=== PATIENT | male | born 1945 | race Caucasian/White ===

== ENCOUNTER → 2017-06-09 | Day surgery (SDC) | payer MEDICARE, OTHER ==
[~2017-06-09] MED LIST: ALBU8I INH; ALLO300T2 PO; ALPR.5 PO; AMLO5TAB96 PO; ASPI81 PO; CHOL1CAP6 PO; CO Q30CA PO; FISH500C PO; HYDR10TA23 PO; ISOS60 PO; LACTATED RINGER'S 1000 ML INJ 1,000 ML ONE; LISI-366 PO; Lomotil; METO25 PO; MILK1CAP PO; MOBI15TA PO; NITR.4 SL; PROPOFOL 200 MG/20 ML AMP IV ONE; PROT40TA PO; RED600TA PO; REST0.05 EACH EYE; ROSU10 PO; SENTTAB2 PO; SERT-129 PO; SYMB80AE INH; TAMS0.4C67 PO; TRAZ50TA4 PO; VITA100020 IM; VITA500T10 PO
--- NOTE | 2017-06-09 10:27 | GIPROC ---
[facility] [address] [facility], [address] EGD PROCEDURE REPORT EXAM DATE: 06/09/2017 PATIENT NAME: Marcos Isaac MR #: [id number] BIRTHDATE: 1945 ATTENDING: Chema Yu MD ORDER #: [id number] COPPERSMITH HELPER: Kinjal Reyes STATUS: outpatient INDICATIONS: The patient is a 72 yr old male here for an EGD due to history of Douglas's esophagus and dysphagia PROCEDURE PERFORMED: EGD w/ biopsy EGD w/ dilation of esophagus via guidewire MEDICATIONS: None and Per Anesthesia. TOPICAL ANESTHETIC: CONSENT: The patient understands the risks and benefits of the procedure and understands that these risks include, but are not limited to: sedation, allergic reaction, infection, perforation and/or bleeding. Alternative means of evaluation and treatment include, among others: physical exam, x-rays, and/or surgical intervention. The patient elects to proceed with this endoscopic procedure. medical equipment was checked for proper function. Hand hygiene and appropriate measures for infection prevention was taken. After the risks, benefits and alternatives of the procedure were thoroughly explained, Informed consent was verified, confirmed and timeout was successfully executed by the treatment team. The patient was anesthetized with topical anesthesia and the EC-[id number] ([id number]) endoscope was introduced through the mouth and advanced to the second portion of the duodenum. Retroflexed views revealed a hiatal hernia The gastroscope was then slowly withdrawn and removed. ESOPHAGUS: There was short segment Douglas's esophagus found in the distal esophagus. The length of circumferential Douglas's was 1cm ([place] C1) and the length of Maximal extent of Douglas's was 1cm ([place] M1). There was no nodular mucosa noted in the Douglas's segment. A biopsy was performed using cold forceps. Sample sent for histology. There was a short fibrotic stricture in the distal esophagus. The stricture was traversable. The stricture was dilated using a 17mm (51Fr) savary dilator over guidewire. Fresh blood about 2 to 3 cc in the fundus, no clear area of bleeding identified. STOMACH: There was erythematous severe gastritis in the gastric antrum. DUODENUM: The duodenal mucosa appeared normal. ADVERSE EVENTS: There were no complications. IMPRESSIONS: 1. There was short segment Douglas's esophagus found in the distal esophagus; biopsy was performed 2. There was a short stricture in the distal esophagus; The stricture was dilated using a 17mm (51Fr) savary dilator over guidewire 3. Fresh blood about 2 to 3 cc in the fundus, no clear area of bleeding identified 4. There was erythematous gastritis in the gastric antrum 5. Normal duodenal mucosa 6. Retroflexed views revealed a hiatal hernia RECOMMENDATIONS: 1. Await biopsy results. Biopsy results will not be ready for 7-10 days. If you don't hear from us in two weeks, call our office for biopsy results. 2. Anti-reflux regimen 3. Continue PPI 4. Avoid NSAIDS 5. Cbc PATIENT CONDITION: stable DISPOSITION: Home REPEAT EXAM: Return 1 year EGD pending biopsy results Chema Yu MD eSigned: Chema Yu MD 06/09/2017 10:27 AM cc: Jori Portillo [facility] Jeannie Bocanegra M.D. PATIENT NAME: Marcos sIaac MR#: [id number]
== END | disposition home or self-care (01) ==
LOC: ESDC 08:21
PROVIDERS: ATTEND Internal Medicine Gastroenterology
DX: K22.70 Barrett's esophagus without dysplasia (principal); R13.10 Dysphagia, unspecified; K29.70 Gastritis, unspecified, without bleeding; K22.2 Esophageal obstruction; K44.9 Diaphragmatic hernia without obstruction or gangrene
CPT/HCPCS: 00740; 43239; 43248; 88305; J7120

== ENCOUNTER 2017-07-08 15:25 | Emergency (ER) | payer MEDICARE, OTHER ==
[~2017-07-08] VITALS: Ht 172.7 cm; Wt 82.0 kg
[~2017-07-08 15:25] MED LIST changes: -LACTATED RINGER'S 1000 ML INJ 1,000 ML ONE; -PROPOFOL 200 MG/20 ML AMP IV ONE
[2017-07-08 15:37] VITALS: BP 193/94; PULSE 65; RESP 18; TEMP 98.2; O2SAT 99
[2017-07-08 16:24] LABS: BLOOD, URINE NEG (NEG); COMMENT (UR) CULT NOT INDICATED; CULTURE IF INDICATED CULT NOT INDICATED; GLUCOSE,URINE NEG (NEG); KETONE, URINE NEG (NEG); MUCUS URINE FEW /lpf (OCC); NITRITE,URINE NEG (NEG); PH, URINE 5.5 (5.0-8.5); SQUAMOUS EPITHELIAL CELL URINE <1 /hpf (0-5); URINE COLOR YELLOW (YELLW/STRAW)
[2017-07-08 16:29] LABS: AUTOMATED NEUTROPHIL # 3.8 TH/MM3 (1.8-7.7); BASOPHIL % 0.7 % (0.0-2.0); EOSINOPHIL # 0.1 TH/MM3 (0-0.4); EOSINOPHIL % 1.1 % (0.0-4.0); HEMATOCRIT 40.7 % (39.0-51.0); HEMO FLAGS DIFF FINAL; LYMPHOCYTE # 1.9 TH/MM3 (1.0-4.8); MEAN CELL VOLUME 96.2 FL (80.0-100.0); MEAN CORPUSCULAR HGB CONC 33.3 % (32.0-36.0); NEUT % 61.2 % (16.0-70.0); PLATELET COUNT 194 TH/MM3 (150-450); RED BLOOD COUNT 4.24 MIL/MM3 (4.50-5.90); RED CELL DISTRIBUTION WIDTH 13.7 % (11.6-17.2); WHITE BLOOD COUNT 6.2 TH/MM3 (4.0-11.0)
[2017-07-08 16:43] LABS: ALT (GPT) 81 U/L (12-78); ANION GAP 9 MEQ/L (5-15); AST (GOT) 44 U/L (15-37); BICARBONATE 26.5 MEQ/L (21.0-32.0); BLOOD UREA NITROGEN 17 MG/DL (7-18); CHLORIDE 107 MEQ/L (98-107); GLOMERULAR FILTRATION RATE 76 ML/MIN (>89); POTASSIUM 3.9 MEQ/L (3.5-5.1); SODIUM (NA) 142 MEQ/L (136-145)
[2017-07-08 16:45] LABS: ALKALINE PHOSPHATASE 81 U/L (45-117); TOTAL BILIRUBIN ADULT 0.5 MG/DL (0.2-1.0)
--- NOTE | 2017-07-08 17:51 | PD ---
HPI Chief Complaint: Syncope/Near-Syncope Time Seen by Provider: 17:47 Travel History International Travel<30 days: No Contact w/Intl Traveler<30days: No Traveled to known affect area: No History of Present Illness HPI Patient comes in [place] the [place] for evaluation of a near syncopal event that occurred while at the [place] office at the [place] today. Patient reports that the dose was poker on his teeth make him feel anxious causing him to feel dizzy and nauseous. Patient states this lasted for approximately 10-15 minutes with a dentist up messing around with his teeth. Patient denies any chest pain with this, shortness of breath, headache, neck pain, numbness or tingling anywhere, back pain, bowel pain, or fevers. Patient states that when he was at the [place] they checked his blood pressure during this episode and was found to be a little bit high. Patient states he did not take all of his blood pressure medication this morning. Patient states he feels fine and is wanting to go. PFSH Past Medical History Blood Disorders: No Anxiety: Yes Depression: Yes Heart Rhythm Problems: Yes (NEW IRREGULAR HEART RHYTHEM ) Cancer: Yes (PROSTATE with radiation) Cardiac Catheterization: Yes (08/2012) Cardiovascular Problems: Yes (HTN) High Cholesterol: Yes Chemotherapy: No Chest Pain: Yes Congestive Heart Failure: No Cerebrovascular Accident: Yes Coronary Artery Disease: Yes Diabetes: No Patient Takes Glucophage: No Diminished Hearing: No Diverticulitis: Yes Endocrine: Yes Gastrointestinal Disorders: Yes (DIVERTICULITIS/GERD: Barretts esophagus) Gout: Yes Genitourinary: Yes (re-occuring prostate cancer; hx kidney stone) Hypertension: Yes Immune Disorder: No Implanted Vascular Access Dvce: Yes Medical other: Yes (colon polyps: chronic low back pain;acute pancreatitis) Musculoskeletal: Yes (DJD spine:osteoarthritis) Neurologic: Yes (SAH 01/1988 TREATED MEDICALLY) Psychiatric: Yes (anxiety;obsessive-compulsive disorder) Reproductive: No Respiratory: Yes (sleep apnea; empysema;copd) Immunizations Current: No Myocardial Infarction: No Pancreatitis: Yes Radiation Therapy: Yes Thyroid Disease: No PNEUMOCCOCAL Vaccine (Year): 1 Past Surgical History Abdominal Surgery: Yes (sigmoid colectomy) Body Medical Devices: STENT CARDIAC Cardiac Surgery: Yes (stent placement in 2007) Coronary Artery Bypass Graft: No Coronary Stent: Yes (08/20/08) Genitourinary Surgery: Yes (POLYP REMOVED WITH COLONOSCOPY) Tonsillectomy: Yes ( A CHILD) Other Surgery: Yes Social History Alcohol Use: Yes (socially) Tobacco Use: No (quit 1988) Substance Use: Yes (opioid dependence) Allergies-Medications (Allergen,Severity, Reaction): Coded Allergies: No Known Allergies (Unverified , 04/27/16) Reported Meds & Prescriptions Reported Meds & Active Scripts Active Xanax (Alprazolam) 0.5 Mg Tab 0.5 Mg PO BID PRN Reported Nitroglycerin 0.4 Mg Subl 0.4 Mg SL DIRECTED Trazodone Hcl (Trazodone HCl) 50 Mg Tab 50 Mg PO HS Sertraline 100 mg (Sertraline HCl) 100 Mg Tab 1 Tab PO DAILY Mobic (Meloxicam) 15 Mg Tab 15 Mg PO DAILY Restasis (Cyclosporine) 0.05 % Emu 1 Drop EACH EYE BID Symbicort (Budesonide/Formoterol Fumarate) 80 Mcg/4.5 Mcg Aer 2 Puff INH BID * SHAKE WELL BEFORE USE * Ventolin Hfa (Albuterol Sulfate) 8 Gm Aero 2 Puff INH QID NEB * SHAKE WELL BEFORE USE * Flomax (Tamsulosin HCl) 0.4 Mg Cap 0.4 Mg PO DAILY [Lomotil] 1 BID Vitamin C (Ascorbic Acid) 500 Mg Tab 500 Mg PO DAILY Vitamin D-3 (Cholecalciferol) 1,000 Unit Tab 1,000 Unit PO DAILY Red Yeast Rice (Red Yeast Rice Extract) 600 Mg Tab 600 Mg PO BID Hydralazine HCl 10 Mg Tab 10 Mg PO TID Protonix (Pantoprazole Sodium) 40 Mg Tabdr 40 Mg PO DAILY Metoprolol Tartrate 25 mg (Metoprolol Tartrate) 25 Mg Tab 25 Mg PO BID Crestor (Rosuvastatin Calcium) 10 Mg Tab 1 Tab PO DAILY Fish Oil 500 Mg Cap 4 Cap PO DAILY Vitamin B-12 (Cyanocobalamin) 1,000 Mcg Inj 1,000 Mcg IM Q30D Co Q-10 (Coenzyme Q10 (Ubidecarenone)) 30 Mg Cap 1 Cap PO BID Milk Thistle (Milk Thistle (Silybum Marianum) 1,000 Mg Cap 1 Cap PO BID S[employer] (Multiple Vitamins W/ Minerals) Tab 1 Tab PO DAILY Imdur 60 Mg (Isosorbide Mononitrate) 60 Mg Tabcr 60 Mg PO DAILY Allopurinol 300 Mg Tab 300 Mg PO DAILY Aspirin 81 Mg Tab 81 Mg PO DAILY Norvasc (Amlodipine Besylate) 5 Mg Tab 10 Mg PO DAILY Lisinopril 40 mg (Lisinopril) 40 Mg Tab 20 Mg PO BID Review of Systems Except as stated in HPI: all other systems reviewed are Neg Physical Exam Narrative GENERAL: Well-developed, overly nourished, in no acute distress, and non-ill appearing. SKIN: Focused skin assessment warm and dry. HEAD: Atraumatic. Normocephalic. EYES: Pupils equal and round. EOMI. No scleral icterus. No injection or drainage. ENT: No nasal bleeding or discharge. Mucous membranes pink and moist. NECK: Trachea midline. No JVD. Supple. No nuclear rigidity. CARDIOVASCULAR: Regular rate and rhythm. No murmur appreciated. RESPIRATORY: No accessory muscle use. No respiratory distress. Clear to auscultation. Breath sounds equal bilaterally. GASTROINTESTINAL: Abdomen soft, non-tender, nondistended, and no guarding. Hepatic and splenic margins not palpable. Normal bowel sounds 4. No pulsatile mass. MUSCULOSKELETAL: No obvious deformities. No clubbing. No cyanosis. No edema. Full range of motion. Normal gait. NEUROLOGICAL: Awake and alert. No obvious cranial nerve deficits. Motor grossly within normal limits. Normal speech. PSYCHIATRIC: Appropriate mood and affect; insight and judgment normal. Data Data Last Documented VS Vital Signs Date Time Temp Pulse Resp B/P Pulse Ox O2 Delivery O2 Flow Rate FiO2 07/08/17 15:37 98.2 65 18 193/94 99 Orders Complete Blood Count With Diff (07/08/17 16:03) Comprehensive Metabolic Panel (07/08/17 16:03) Iv Access Insert/Monitor (07/08/17 16:03) Urinalysis - C+S If Indicated (07/08/17 16:03) Electrocardiogram (07/08/17 ) Labs Laboratory Tests Test 07/08/17 16:00 White Blood Count 6.2 TH/MM3 Red Blood Count 4.24 MIL/MM3 Hemoglobin 13.6 GM/DL Hematocrit 40.7 % Mean Corpuscular Volume 96.2 FL Mean Corpuscular Hemoglobin 32.0 PG Mean Corpuscular Hemoglobin 33.3 % Concent Red Cell Distribution Width 13.7 % Platelet Count 194 TH/MM3 Mean Platelet Volume 8.0 FL Neutrophils (%) (Auto) 61.2 % Lymphocytes (%) (Auto) 30.0 % Monocytes (%) (Auto) 7.0 % Eosinophils (%) (Auto) 1.1 % Basophils (%) (Auto) 0.7 % Neutrophils # (Auto) 3.8 TH/MM3 Lymphocytes # (Auto) 1.9 TH/MM3 Monocytes # (Auto) 0.4 TH/MM3 Eosinophils # (Auto) 0.1 TH/MM3 Basophils # (Auto) 0.0 TH/MM3 CBC Comment DIFF FINAL Differential Comment Urine Color YELLOW Urine Turbidity CLEAR Urine pH 5.5 Urine Specific [place] 1.021 Urine Protein NEG mg/dL Urine Glucose (UA) NEG mg/dL Urine Ketones NEG mg/dL Urine Occult Blood NEG Urine Nitrite NEG Urine Bilirubin NEG Urine Urobilinogen LESS THAN 2.0 MG/DL Urine Leukocyte Esterase NEG Urine RBC LESS THAN 1 /hpf Urine WBC LESS THAN 1 /hpf Urine Squamous Epithelial <1 /hpf Cells Urine Mucus FEW /lpf Microscopic Urinalysis Comment CULT NOT INDICATED Sodium Level 142 MEQ/L Potassium Level 3.9 MEQ/L Chloride Level 107 MEQ/L Carbon Dioxide Level 26.5 MEQ/L Anion Gap 9 MEQ/L Blood Urea Nitrogen 17 MG/DL Creatinine 0.97 MG/DL Estimat Glomerular Filtration 76 ML/MIN Rate Random Glucose 104 MG/DL Calcium Level 8.4 MG/DL Total Bilirubin 0.5 MG/DL Aspartate Amino Transf 44 U/L (AST/SGOT) Alanine Aminotransferase 81 U/L (ALT/SGPT) Alkaline Phosphatase 81 U/L Total Protein 6.5 GM/DL Albumin 3.3 GM/DL [facility] Medical Decision Making Medical Screen Exam Complete: Yes Emergency Medical Condition: Yes Interpretation(s) EKG reviewed by Dr. Don shows sinus bradycardia care with a sinus arrhythm with a rate of 55. No STEMI. Differential Diagnosis Uncontrolled hypertension, electrolyte abnormality, UTI, syncope, near syncope, other Narrative Course Patient presented with dizziness described as near syncope. There was no true syncope. The patient denied any symptoms of chest pain, SOB/difficulty breathing , palpitations or skipped heartbeats. The patient denied and headache. The patient denied any bloody or tarry stools. The patient has no significant risk factors and no significant co-morbidities. There was no evidence to suggest neurologic or cardiac etiology or GIB. The diagnosis and findings were discussed with the patient and the patient was instructed to follow up with their primary physician. Patient in no obvious distress upon re-evaluation. All pertinent laboratory result(s) discussed with patient. Discussed patient with Dr. Don, who saw and evaluated the patient and is in agreement with plan of care and disposition. Any questions/concerns in reference to patient diagnosis/ condition discussed and clarified prior to patient's discharge. Reinforced sheer importance of close follow up with patient's primary physician or primary care clinic. Instructed patient to return to ED immediately, if symptoms return/ worsen. Pt showed understanding of above instructions. Further instructions and recommendations were detailed in discharge paperwork. Pt ambulated without difficulty out of ED at discharge. Diagnosis Primary Impression: Near syncope Patient Instructions: General Instructions, Near Syncope (ED) Additional Instructions: Follow-up with your primary care physician this week for evaluation. Return to the emergency department if symptoms get worse. Disposition: 01 DISCHARGE HOME Condition: Stable Rodrigo Canseco Jul 08, 2017 17:51
--- NOTE | 2017-07-08 19:23 | PD ---
Data Data Last Documented VS Vital Signs Date Time Temp Pulse Resp B/P Pulse Ox O2 Delivery O2 Flow Rate FiO2 07/08/17 15:37 98.2 65 18 193/94 99 Orders Complete Blood Count With Diff (07/08/17 16:03) Comprehensive Metabolic Panel (07/08/17 16:03) Iv Access Insert/Monitor (07/08/17 16:03) Urinalysis - C+S If Indicated (07/08/17 16:03) Electrocardiogram (07/08/17 ) Labs Laboratory Tests Test 07/08/17 16:00 White Blood Count 6.2 TH/MM3 Red Blood Count 4.24 MIL/MM3 Hemoglobin 13.6 GM/DL Hematocrit 40.7 % Mean Corpuscular Volume 96.2 FL Mean Corpuscular Hemoglobin 32.0 PG Mean Corpuscular Hemoglobin 33.3 % Concent Red Cell Distribution Width 13.7 % Platelet Count 194 TH/MM3 Mean Platelet Volume 8.0 FL Neutrophils (%) (Auto) 61.2 % Lymphocytes (%) (Auto) 30.0 % Monocytes (%) (Auto) 7.0 % Eosinophils (%) (Auto) 1.1 % Basophils (%) (Auto) 0.7 % Neutrophils # (Auto) 3.8 TH/MM3 Lymphocytes # (Auto) 1.9 TH/MM3 Monocytes # (Auto) 0.4 TH/MM3 Eosinophils # (Auto) 0.1 TH/MM3 Basophils # (Auto) 0.0 TH/MM3 CBC Comment DIFF FINAL Differential Comment Urine Color YELLOW Urine Turbidity CLEAR Urine pH 5.5 Urine Specific [place] 1.021 Urine Protein NEG mg/dL Urine Glucose (UA) NEG mg/dL Urine Ketones NEG mg/dL Urine Occult Blood NEG Urine Nitrite NEG Urine Bilirubin NEG Urine Urobilinogen LESS THAN 2.0 MG/DL Urine Leukocyte Esterase NEG Urine RBC LESS THAN 1 /hpf Urine WBC LESS THAN 1 /hpf Urine Squamous Epithelial <1 /hpf Cells Urine Mucus FEW /lpf Microscopic Urinalysis Comment CULT NOT INDICATED Sodium Level 142 MEQ/L Potassium Level 3.9 MEQ/L Chloride Level 107 MEQ/L Carbon Dioxide Level 26.5 MEQ/L Anion Gap 9 MEQ/L Blood Urea Nitrogen 17 MG/DL Creatinine 0.97 MG/DL Estimat Glomerular Filtration 76 ML/MIN Rate Random Glucose 104 MG/DL Calcium Level 8.4 MG/DL Total Bilirubin 0.5 MG/DL Aspartate Amino Transf 44 U/L (AST/SGOT) Alanine Aminotransferase 81 U/L (ALT/SGPT) Alkaline Phosphatase 81 U/L Total Protein 6.5 GM/DL Albumin 3.3 GM/DL MDM Supervised Visit with NISHA: Yes Narrative Course The history, exam, and medical decision-making in the associated midlevel provider note were completed with my assistance. I reviewed and agree with the findings presented. I attest that I had a [id number] encounter with the patient on the same day, and personally performed and documented my assessment and findings in the medical record. *My assessment and Findings: This is a 72-year-old male who has a history of coronary artery disease and [facility] when he felt lightheaded and dizzy. He didn't pass out and denies any chest pain or trouble breathing. Labs are obtained and EKG was obtained which was reassuring. He feels much better and wants to go home. I suspect this was a vasovagal episode. I think he's safe to follow-up with his primary care physician. Diagnosis Primary Impression: Near syncope Patient Instructions: General Instructions, Near Syncope (ED) Departure Forms: Tests/Procedures Additional Instruction: Follow-up with your primary care physician this week for evaluation. Return to the emergency department if symptoms get worse. Disposition: 01 DISCHARGE HOME Condition: Stable Irma Don MD Jul 08, 2017 19:23
--- NOTE | 2017-07-09 08:27 | EKG ---
Date Performed: 07/08/2017 Time Performed: 18:08:32 PTAGE: 72 years EKG: SINUS BRADYCARDIA WITH SINUS ARRHYTHMIA NONSPECIFIC ST & T-WAVE ABNORMALITY BORDERLINE ECG NO PREVIOUS TRACING DOCTOR: Waylon Patel Interpretating Date/Time 07/09/2017 08:25:29
== END 2017-07-08 18:41 | disposition home or self-care (01) ==
LOC: NEDAMB 15:25
DX: R55 Syncope and collapse (principal); I10 Essential (primary) hypertension; G47.30 Sleep apnea, unspecified; F42.8 Other obsessive-compulsive disorder; R00.1 Bradycardia, unspecified; I49.8 Other specified cardiac arrhythmias
CPT/HCPCS: 80053; 81001; 85025; 93005

== ENCOUNTER 2017-10-29 11:42 | Observation (INO) | payer OTHER, MEDICARE ==
[~2017-10-29] VITALS: Ht 172.7 cm; Wt 82.7 kg
[2017-10-29] VITALS (8 sets, daily range): BP systolic 123–207; BP diastolic 70–112; PULSE 69–86; RESP 18–22; TEMP 97.4–98.6; O2SAT 96–99
--- NOTE | 2017-10-29 12:30 | PD ---
HPI Chief Complaint: Respiratory Symptoms Time Seen by Provider: 12:03 Travel History International Travel<30 days: No Contact w/Intl Traveler<30days: No Traveled to known affect area: No History of Present Illness HPI 72-year-old male came to the emergency room with history of shortness of breath and some chest pain. Patient says that the symptoms have persisted since then. No aggravating or relieving factors. Pain is nonradiating and mostly localized to the left chest. No recent long distance travel or prolonged hospitalization. Patient has history of coronary artery disease and has a stent put in in 2005. He has not had any stress test since then. Patient takes one aspirin every day. Patient is not a smoker. He seemed very anxious. His friend was here with him. [facility] Past Medical History Narrative Medical List of his past medical, surgical, social and family history is reviewed from the nursing note Blood Disorders: No Anxiety: Yes Depression: Yes Heart Rhythm Problems: Yes (NEW IRREGULAR HEART RHYTHEM ) Cancer: Yes (PROSTATE with radiation) Cardiac Catheterization: Yes (08/2012) Cardiovascular Problems: Yes High Cholesterol: Yes Chemotherapy: No Chest Pain: Yes Congestive Heart Failure: No Cerebrovascular Accident: Yes Coronary Artery Disease: Yes Diabetes: No Diminished Hearing: No Diverticulitis: Yes Endocrine: Yes Gastrointestinal Disorders: Yes (DIVERTICULITIS/GERD: Barretts esophagus) Gout: Yes Genitourinary: Yes (re-occuring prostate cancer; hx kidney stone) Hypertension: Yes Immune Disorder: No Implanted Vascular Access Dvce: Yes Musculoskeletal: Yes (DJD spine:osteoarthritis) Neurologic: Yes (SAH 01/1988 TREATED MEDICALLY) Psychiatric: Yes (anxiety;obsessive-compulsive disorder) Reproductive: No Respiratory: Yes (copd) Immunizations Current: No Myocardial Infarction: No Pancreatitis: Yes Radiation Therapy: Yes Thyroid Disease: No PNEUMOCCOCAL Vaccine (Year): 1 Past Surgical History Abdominal Surgery: Yes (sigmoid colectomy) Body Medical Devices: STENT CARDIAC Cardiac Surgery: Yes (stent placement in 2007) Coronary Artery Bypass Graft: No Coronary Stent: Yes (08/20/08) Genitourinary Surgery: Yes (POLYP REMOVED WITH COLONOSCOPY) Tonsillectomy: Yes ( A CHILD) Other Surgery: Yes Social History Alcohol Use: Yes (socially) Tobacco Use: No (quit 1987) Substance Use: Yes (opioid dependence) Allergies-Medications (Allergen,Severity, Reaction): Coded Allergies: No Known Allergies (Unverified Allergy, Unknown, 10/29/17) Comments No known drug allergies. Reported Meds & Prescriptions Reported Meds & Active Scripts Active Reported Red Yeast Rice (Red Yeast Rice Extract) 600 Mg Tab 600 Mg PO BID Multi-Vitamin/Minerals (Multiple Vitamins W/ Minerals) 1 Tab Tab 1 Tab PO DAILY Milk Thistle Unknown Strength Cap 1 Cap PO DAILY Co Q-10 (Coenzyme Q10 (Ubidecarenone)) Unknown Strength Cap 1 Cap PO DAILY Ascorbic Acid 500 Mg Tab 500 Mg PO DAILY Nitrostat SL (Nitroglycerin) 0.4 Mg Subl 0.4 Mg SL DIRECTED PRN 1 tablet under the tongue as needed for chest pain. Repeat every 5 minutes for a total of 3 DOSES or call 911 if NO relief. Flonase Nasal [place] (Fluticasone Nasal [place]) 50 Mcg/Act [place] 2 [place] EACH NARE HS Fish Oil 1000 mg ([place]-3 Fatty Acids) 300 Mg-1,000 Mg Cap 4 Cap PO BID Symbicort Inh (Budesonide/Formoterol Fumarate) 160-4.5 Mcg/Act Aero 2 Puff INH BID Potassium Chloride ER (Potassium Chloride) 10 Meq Cap 10 Meq PO DAILY Protonix (Pantoprazole Sodium) 40 Mg Tab 40 Mg PO DAILY Remeron (Mirtazapine) 15 Mg Tab 7.5 Mg PO HS Metoprolol Tartrate 50 Mg Tab 25 Mg PO BID Claritin (Loratadine) 10 Mg Tablet 10 Mg PO DAILY Lisinopril 40 Mg Tab 20 Mg PO DAILY Isosorbide Mononitrate ER (Isosorbide Mononitrate) 60 Mg Tab 60 Mg PO DAILY Hydralazine HCl 10 Mg Tablet 10 Mg PO BID Guaifenesin 400 Mg Tab 400 Mg PO BID Lopid (Gemfibrozil) 600 Mg Tab 600 Mg PO BIDAC Take 30 minutes prior to breakfast and dinner Neurontin (Gabapentin) 100 Mg Cap 100 Mg PO DAILY Restasis Opth (Cyclosporine Opth) 0.05% Emul 1 Drop EACH EYE BID Cyanocobalamin Inj (Cyanocobalamin) 1,000 Mcg/Ml Inj 1,000 Mcg IM Q30D Refresh Celluvisc Unit-Dose Opth Drops (Carboxymethylcellulose Sodium Opth Drops ) 1% Drops 1 Drop EACH EYE QID PRN Calcium 600 + Vit D 400 Softgl (Calcium Carbonate/Vitamin D3) 600 Mg-400 Capsule 2 Cap PO DAILY Aspirin Adult Low Strength (Aspirin) 81 Mg Tabdr 81 Mg PO DAILY Norvasc (Amlodipine Besylate) 10 Mg Tab 10 Mg PO DAILY Xanax (Alprazolam) 0.5 Mg Tab 0.5 Mg PO Q8H PRN Zyloprim (Allopurinol) 300 Mg Tab 450 Mg PO DAILY Alfuzosin HCl ER (Alfuzosin HCl) 10 Mg Tab 10 Mg PO DAILY Fosamax (Alendronate Sodium) 70 Mg Tab 70 Mg PO Q7D Ventolin Hfa 18 GM Inh (Albuterol Sulfate) 90 Mcg/Act Aer 2 Puff INH Q6H PRN Narrative Medication List of his home medications reviewed from the nursing note. Review of Systems Except as stated in HPI: all other systems reviewed are Neg Cardiovascular: Positive: Chest Pain or Discomfort Respiratory: Positive: Shortness of Breath Physical Exam Narrative GENERAL: Awake, alert, anxious, mild distress SKIN: Focused skin assessment warm/dry. HEAD: Atraumatic. Normocephalic. EYES: Pupils equal and round. No scleral icterus. No injection or drainage. ENT: No nasal bleeding or discharge. Mucous membranes pink and moist. NECK: Trachea midline. No JVD. CARDIOVASCULAR: Regular rate and rhythm. No murmur appreciated. RESPIRATORY: No accessory muscle use. Clear to auscultation. Breath sounds equal bilaterally. GASTROINTESTINAL: Abdomen soft, non-tender, nondistended. Hepatic and splenic margins not palpable. MUSCULOSKELETAL: No obvious deformities. No clubbing. No cyanosis. No edema. NEUROLOGICAL: Awake and alert. No obvious cranial nerve deficits. Motor grossly within normal limits. Normal speech. PSYCHIATRIC: Appropriate mood and affect; insight and judgment normal. Data Data Last Documented VS Orders Orders Complete Blood Count With Diff (10/29/17 12:39) Basic Metabolic Panel (Bmp) (10/29/17 12:39) B-Type Natriuretic Peptide (10/29/17 12:39) Prothrombin Time / Inr (Pt) (10/29/17 12:39) Troponin I (10/29/17 12:39) Iv Access Insert/Monitor (10/29/17 12:39) Electrocardiogram (10/29/17 12:39) Ecg Monitoring (10/29/17 12:39) Oximetry (10/29/17 12:39) Oxygen Administration (10/29/17 12:39) Chest, Single Ap (10/29/17 12:39) Sodium Chloride 0.9% Flush (Ns Flush) (10/29/17 12:45) Protein Corrected Calcium(Pcc) (10/29/17 13:05) Calcium Gluconate Inj (Calcium Gluconate (10/29/17 15:00) Calcium Carbonate Chew (Tums Chew) (10/29/17 15:00) Potassium Chloride (Kcl) (10/29/17 15:00) Sodium Chlor 0.9% 1000 Ml Inj (Ns 1000 M (10/29/17 15:00) Arterial Blood Gas (Abg) (10/29/17 ) Admit Order (Ed Use Only) (10/29/17 15:59) Labs Laboratory Tests Test 10/29/17 13:05 10/29/17 15:24 White Blood Count 4.6 TH/MM3 Red Blood Count 4.54 MIL/MM3 Hemoglobin 15.7 GM/DL Hematocrit 43.8 % Mean Corpuscular Volume 96.5 FL Mean Corpuscular Hemoglobin 34.5 PG Mean Corpuscular Hemoglobin Concent 35.7 % Red Cell Distribution Width 14.9 % Platelet Count 205 TH/MM3 Mean Platelet Volume 7.6 FL Neutrophils (%) (Auto) 45.1 % Lymphocytes (%) (Auto) 46.6 % Monocytes (%) (Auto) 7.4 % Eosinophils (%) (Auto) 0.2 % Basophils (%) (Auto) 0.7 % Neutrophils # (Auto) 2.1 TH/MM3 Lymphocytes # (Auto) 2.1 TH/MM3 Monocytes # (Auto) 0.3 TH/MM3 Eosinophils # (Auto) 0.0 TH/MM3 Basophils # (Auto) 0.0 TH/MM3 CBC Comment DIFF FINAL Differential Comment Prothrombin Time 11.7 SEC Prothromb Time International Ratio 1.1 RATIO Blood Urea Nitrogen 23 MG/DL Creatinine 0.86 MG/DL Random Glucose 165 MG/DL Total Protein 6.8 GM/DL Calcium Level 7.0 MG/DL Sodium Level 134 MEQ/L Potassium Level 3.4 MEQ/L Chloride Level 103 MEQ/L Carbon Dioxide Level 16.4 MEQ/L Anion Gap 15 MEQ/L Estimat Glomerular Filtration Rate 87 ML/MIN Protein Corrected Calcium 7.2 MG/DL Troponin I LESS THAN 0.02 NG/ML B-Type Natriuretic Peptide 33 PG/ML Blood Gas Puncture Site RT RADIAL Blood Gas Patient Temperature 37.0 Blood Gas HCO3 20 mmol/L Blood Gas Base Excess -3.5 mmol/L Blood Gas Oxygen Saturation 96 % Arterial Blood pH 7.42 Arterial Blood Partial Pressure CO2 31 mmHg Arterial Blood Partial Pressure O2 116 mmHG Arterial Blood Oxygen Content 20.0 Vol % Arterial Blood Carboxyhemoglobin 1.5 % Arterial Blood Methemoglobin 1.8 % Blood Gas Hemoglobin 14.8 G/DL Oxygen Delivery Device NASAL CANNULA Blood Gas Liter Flow 3 L/M MDM Medical Decision Making Medical Screen Exam Complete: Yes Emergency Medical Condition: Yes Medical Record Reviewed: Yes Interpretation(s) Twelve-lead EKG was reviewed by me. Normal sinus rhythm, normal axis, nonspecific ST-T wave changes. Heart rate of 73 bpm. Differential Diagnosis ACS, non-STEMI, CHF, atypical chest pain Narrative Course 3:56 PM blood test results are back. Patient has slight metabolic acidosis but blood gas shows a normal pH. Chest x-rays negative. Patient has some risk factors along with previous history of coronary artery disease and I would like to admit him to the chest pain center to be seen by the career information specialist and have ACS ruled out. Procedures EKG Prior to Arrival: No Diagnosis Primary Impression: Chest pain Qualified Codes: R07.9 - Chest pain, unspecified Additional Impressions: Shortness of breath COPD (chronic obstructive pulmonary disease) Qualified Codes: J44.9 - Chronic obstructive pulmonary disease, unspecified Referrals: Primary Care Physician 2 days Additional Instructions: Please return to the ER if the condition worsens or any other new concerns. Otherwise follow-up with your primary care next couple days. Med/Other Pt SpecificInfo: No Change to Meds Disposition: 01 DISCHARGE HOME Condition: Stable Nico Hampton MD Oct 29, 2017 12:30
[2017-10-29] MEDS ORDERED: SODIUM CHLORIDE 0.9% FLUSH 10 ML FLUSH IVF PRN (12:45)
[2017-10-29 13:20] LABS: AUTOMATED NEUTROPHIL # 2.1 TH/MM3 (1.8-7.7); BASOPHIL % 0.7 % (0.0-2.0); EOSINOPHIL % 0.2 % (0.0-4.0); HEMATOCRIT 43.8 % (39.0-51.0); HEMO FLAGS DIFF FINAL; LYMPH % 46.6 % (9.0-44.0); LYMPHOCYTE # 2.1 TH/MM3 (1.0-4.8); MEAN CELL VOLUME 96.5 FL (80.0-100.0); MEAN CORPUSCULAR HEMOGLOBIN 34.5 PG (27.0-34.0); MEAN CORPUSCULAR HGB CONC 35.7 % (32.0-36.0); MONO % 7.4 % (0.0-8.0); NEUT % 45.1 % (16.0-70.0); PLATELET COUNT 205 TH/MM3 (150-450); RED BLOOD COUNT 4.54 MIL/MM3 (4.50-5.90); RED CELL DISTRIBUTION WIDTH 14.9 % (11.6-17.2); WHITE BLOOD COUNT 4.6 TH/MM3 (4.0-11.0)
[2017-10-29 13:42] LABS: ANION GAP 15 MEQ/L (5-15); BICARBONATE 16.4 MEQ/L (21.0-32.0); BLOOD UREA NITROGEN 23 MG/DL (7-18); CHLORIDE 103 MEQ/L (98-107); GLOMERULAR FILTRATION RATE 87 ML/MIN (>89); SODIUM (NA) 134 MEQ/L (136-145)
[2017-10-29 13:43] LABS: POTASSIUM 3.4 MEQ/L (3.5-5.1)
--- NOTE | 2017-10-29 14:18 | RADRPT ---
EXAM DATE/TIME: 10/29/2017 13:24 [facility] COMPARISON: CHEST SINGLE AP, August 18, 2014, 20:17. INDICATIONS : Short of breath, left kidney pain. MEDICAL HISTORY : Chronic obstructive pulmonary disease. Myocardial infarction. SURGICAL HISTORY : Coronary artery stent. ENCOUNTER: Initial ACUITY: 1 day PAIN SCORE: 4/10 LOCATION: Bilateral chest FINDINGS: A single view of the chest demonstrates the lungs to be symmetrically aerated without evidence of mas s, infiltrate or effusion. The cardiomediastinal contours are unremarkable. Osseous structures are intact. CONCLUSION: No acute cardiopulmonary process Everardo Hogue MD on October 29, 2017 at 14:15 Board Certified Radiologist. This report was verified electronically.
[2017-10-29 14:32] LABS: INTERNATIONAL NORMALIZED RATIO 1.1 RATIO; PROTHROMBIN TIME - PATIENT 11.7 SEC (9.8-11.6)
[2017-10-29 14:50] LABS: CALCIUM-PROTEIN CORRECTED 7.2 MG/DL (8.5-10.1)
[2017-10-29] MEDS ORDERED: POTASSIUM CHLORIDE 20 MEQ CONTROLLED RELEASE TAB PO ONE (15:00)
[2017-10-29] MEDS ORDERED: SODIUM CHLOR 0.9% 1000 ML INJ 1,000 ML IV ONE (15:00)
[2017-10-29] MEDS ORDERED: CALCIUM CARBONATE 500 MG CHEWABLE TAB CHEW ONE (15:00)
[2017-10-29] MEDS ORDERED: CALCIUM GLUCONATE INJ 1 GM in DEXTROSE 5% IN WATER 100ML INJ 100 ML IV ONE ×2 (15:00)
[2017-10-29] MEDS ORDERED: FLUT1SPR5 EACH NARE (15:02)
[2017-10-29] MEDS ORDERED: PROT40TA PO (15:02)
[2017-10-29] MEDS ORDERED: CLAR10TA7 PO (15:02)
[2017-10-29] MEDS ORDERED: COEN1CAP PO (15:02)
[2017-10-29] MEDS ORDERED: ASCO500T PO (15:02)
[2017-10-29] MEDS ORDERED: ALFU10TA3 PO (15:02)
[2017-10-29] MEDS ORDERED: ALLO300 PO (15:02)
[2017-10-29] MEDS ORDERED: NEUR100C PO (15:02)
[2017-10-29] MEDS ORDERED: CELL1DRO EACH EYE (15:02)
[2017-10-29] MEDS ORDERED: LISI40TA PO (15:02)
[2017-10-29] MEDS ORDERED: AMLO10 PO (15:02)
[2017-10-29] MEDS ORDERED: HYDR-3798 PO (15:02)
[2017-10-29] MEDS ORDERED: CALC600C3 PO (15:02)
[2017-10-29] MEDS ORDERED: CYAN1000P IM (15:02)
[2017-10-29] MEDS ORDERED: METO50TA PO (15:02)
[2017-10-29] MEDS ORDERED: REME15TA PO (15:02)
[2017-10-29] MEDS ORDERED: MULTTAB62 PO (15:02)
[2017-10-29] MEDS ORDERED: ALPR.5 PO (15:02)
[2017-10-29] MEDS ORDERED: FOSA70TA PO (15:02)
[2017-10-29] MEDS ORDERED: SYMB160A INH (15:02)
[2017-10-29] MEDS ORDERED: POTA10CA PO (15:02)
[2017-10-29] MEDS ORDERED: ISOS60TA PO (15:02)
[2017-10-29] MEDS ORDERED: NITR0.4S SL (15:02)
[2017-10-29] MEDS ORDERED: GEMF600 PO (15:02)
[2017-10-29] MEDS ORDERED: VENTAER INH (15:02)
[2017-10-29] MEDS ORDERED: FISH100020 PO (15:02)
[2017-10-29] MEDS ORDERED: ASPI81TA16 PO (15:02)
[2017-10-29] MEDS ORDERED: GUAI400T32 PO (15:02)
[2017-10-29] MEDS ORDERED: MILK140C PO (15:02)
[2017-10-29] MEDS ORDERED: REST0.05 EACH EYE (15:02)
[2017-10-29] MEDS ORDERED: RED600TA PO (15:04)
[2017-10-29 15:37] LABS: BLOOD GAS BASE EXCESS -3.5 mmol/L (-2-2); BLOOD GAS CARBOXYHEMOGLOBIN 1.5 % (0-4); BLOOD GAS HCO3 20 mmol/L (22-26); BLOOD GAS METHEMOGLOBIN 1.8 % (0-2); BLOOD GAS O2 HGB SATURATION 96 % (90-100); BLOOD GAS PCO2 31 mmHg (38-42); BLOOD GAS PO2 116 mmHG (61-120); BLOOD GAS TOTAL HGB 14.8 G/DL (12.0-16.0); CRITICAL VALUE NO; DRAW SITE RT RADIAL; LITER FLOW 3 L/M; NUMBER OF ARTERIAL PUNCTURES 1; OXYGEN DEVICE NASAL CANNULA; STAT YES; ULNAR PULSE PRESENT
[2017-10-29] MEDS ORDERED: ALPRAZolam 0.25 MG TAB PO PRN (17:15)
[2017-10-29] MEDS ORDERED: ONDANSETRON HCL 4 MG/2 ML VIAL IV PUSH PRN (17:15)
[2017-10-29] MEDS ORDERED: ACETAMINOPHEN 500 MG CPLT PO PRN (17:15)
[2017-10-29] MEDS ORDERED: ACETAMINOPHEN/HYDROcodone 325 MG/7.5 MG TAB PO PRN (17:15)
--- NOTE | 2017-10-29 17:32 | HHI.HP ---
HPI Primary Care Physician [facility] Chief Complaint Chest pain History of Present Illness This is a 72-year-old male with history of cardiac stent in 2007 that presents to ED with primary complaint of shortness of breath. He states that he woke up about 4:00 this morning short of breath. Within 10-15 seconds he took pulses inhalers which resolved the shortness of breath and tightness that he is having in his chest within 15-20 seconds. This recurred several more times morning also relieved with his inhalers. He also had 1-2 pinching sensations in the left chest this morning. He then states that these symptoms have been occurring for over a year at least twice a week. The difference today is that it was more recurrent. Denies recent illnesses. Denies fevers or chills. Voices compliance with his medications. No longer following a asset coordinator. He goes to the [place] for his medical care. Review of Systems General: Patient denies fevers, chills recent, and recent travel HEENT: Patient denies headache, sore throat, difficulty swallowing. Cardiovascular: Has the chest discomfort as mentioned above. Denies sensation of heart beating rapidly or irregularly. No syncope. Denies diaphoresis. Respiratory: He was short of breath. Denies inspirational chest discomfort. Denies coughing wheezing or hemoptysis. GI: Patient denies nausea, vomiting, diarrhea, abdominal pain, bloody stools. Musculoskeletal: Patient denies joint pain or edema. Denies calf pain or edema. Neurovascular: Patient denies numbness, tingling, weakness in extremities. Denies headache. Endocrine: Denies polyuria and polydipsia. Hematologic: Denies easy bruising. Skin: Denies rash or itching. Past Family Social History Allergies: Coded Allergies: No Known Allergies (Unverified Allergy, Unknown, 10/29/17) Past Medical History CAD with stent. COPD. Hyperlipidemia, hypertension, COPD, past history tobacco abuse. Denies diabetes. Past Surgical History Heart catheterizations with stenting as well as heart catheterizations without intervention. Colectomy. Tonsillectomy. Colonoscopies and endoscopies. Reported Medications Reported Meds & Active Scripts Active Reported Red Yeast Rice (Red Yeast Rice Extract) 600 Mg Tab 600 Mg PO BID Multi-Vitamin/Minerals (Multiple Vitamins W/ Minerals) 1 Tab Tab 1 Tab PO DAILY Milk Thistle Unknown Strength Cap 1 Cap PO DAILY Co Q-10 (Coenzyme Q10 (Ubidecarenone)) Unknown Strength Cap 1 Cap PO DAILY Ascorbic Acid 500 Mg Tab 500 Mg PO DAILY Nitrostat SL (Nitroglycerin) 0.4 Mg Subl 0.4 Mg SL DIRECTED PRN 1 tablet under the tongue as needed for chest pain. Repeat every 5 minutes for a total of 3 DOSES or call 911 if NO relief. Flonase Nasal [place] (Fluticasone Nasal [place]) 50 Mcg/Act [place] 2 [place] EACH NARE HS Fish Oil 1000 mg ([place]-3 Fatty Acids) 300 Mg-1,000 Mg Cap 4 Cap PO BID Symbicort Inh (Budesonide/Formoterol Fumarate) 160-4.5 Mcg/Act Aero 2 Puff INH BID Potassium Chloride ER (Potassium Chloride) 10 Meq Cap 10 Meq PO DAILY Protonix (Pantoprazole Sodium) 40 Mg Tab 40 Mg PO DAILY Remeron (Mirtazapine) 15 Mg Tab 7.5 Mg PO HS Metoprolol Tartrate 50 Mg Tab 25 Mg PO BID Claritin (Loratadine) 10 Mg Tablet 10 Mg PO DAILY Lisinopril 40 Mg Tab 20 Mg PO DAILY Isosorbide Mononitrate ER (Isosorbide Mononitrate) 60 Mg Tab 60 Mg PO DAILY Hydralazine HCl 10 Mg Tablet 10 Mg PO BID Guaifenesin 400 Mg Tab 400 Mg PO BID Lopid (Gemfibrozil) 600 Mg Tab 600 Mg PO BIDAC Take 30 minutes prior to breakfast and dinner Neurontin (Gabapentin) 100 Mg Cap 100 Mg PO DAILY Restasis Opth (Cyclosporine Opth) 0.05% Emul 1 Drop EACH EYE BID Cyanocobalamin Inj (Cyanocobalamin) 1,000 Mcg/Ml Inj 1,000 Mcg IM Q30D Refresh Celluvisc Unit-Dose Opth Drops (Carboxymethylcellulose Sodium Opth Drops ) 1% Drops 1 Drop EACH EYE QID PRN Calcium 600 + Vit D 400 Softgl (Calcium Carbonate/Vitamin D3) 600 Mg-400 Capsule 2 Cap PO DAILY Aspirin Adult Low Strength (Aspirin) 81 Mg Tabdr 81 Mg PO DAILY Norvasc (Amlodipine Besylate) 10 Mg Tab 10 Mg PO DAILY Xanax (Alprazolam) 0.5 Mg Tab 0.5 Mg PO Q8H PRN Zyloprim (Allopurinol) 300 Mg Tab 450 Mg PO DAILY Alfuzosin HCl ER (Alfuzosin HCl) 10 Mg Tab 10 Mg PO DAILY Fosamax (Alendronate Sodium) 70 Mg Tab 70 Mg PO Q7D Ventolin Hfa 18 GM Inh (Albuterol Sulfate) 90 Mcg/Act Aer 2 Puff INH Q6H PRN Active Ordered Medications Current Medications Medications (Trade) Dose Ordered Sig/Jyothi Route Start Time Stop Time Status Last Admin (NS Flush) 2 ml UNSCH PRN IVF 10/29/17 12:45 10/29/17 15:08 (Tylenol) 500 mg Q4H PRN PO 10/29/17 17:15 UNV ([place] 7.5-325 Mg) 1 tab Q4H PRN PO 10/29/17 17:15 UNV (Zofran Inj) 4 mg Q6H PRN IV PUSH 10/29/17 17:15 UNV (Protonix) 40 mg DAILY PO 10/29/17 17:15 UNV (Aspirin) 325 mg DAILY PO 10/30/17 09:00 UNV (Xanax) 0.25 mg Q8H PRN PO 10/29/17 17:15 UNV Family History There is family history of heart disease. Social History Patient quit smoking in 1987. Has occasional alcohol. Denies illicit drug use. Physical Exam Vital Signs Vital Signs Date Time Temp Pulse Resp B/P (MAP) Pulse Ox O2 Delivery O2 Flow Rate FiO2 10/29/17 17:15 10/29/17 14:37 70 22 176/97 (123) 98 Nasal Cannula 2.00 10/29/17 13:29 72 22 165/101 (122) 96 Nasal Cannula 2.00 10/29/17 13:24 Nasal Cannula 2.00 10/29/17 13:24 98 Nasal Cannula 2.00 10/29/17 12:00 26 98 Room Air 10/29/17 11:43 97.8 86 20 123/70 (87) 99 Room Air Physical Exam GENERAL: This is a well-nourished, well-developed patient, in no apparent distress. Patient speaks in clear complete sentences. Patient is pleasant. HEENT: Head is atraumatic and normocephalic. Neck is supple without lymphadenopathy and trachea is midline. No JVD or carotid bruits. CARDIOVASCULAR: Regular rate and rhythm without murmurs, gallops, or rubs. RESPIRATORY: Clear to auscultation. Breath sounds equal bilaterally. No wheezes , rales, or rhonchi. Chest wall is nontender. No use of accessory muscles. GASTROINTESTINAL: Abdomen is nontender, nondistended. Abdomen soft. No obvious pulsatile mass or bruit. No CVA tenderness. Strong femoral pulses bilaterally. Normal bowel sounds in all quadrants. MUSCULOSKELETAL: Patient is moving upper and lower extremities freely. No calf tenderness or edema, no Homans sign. Strong pulses in upper and lower extremities. NEUROLOGICAL: Patient is alert and oriented. Cranial nerves 2-12 are grossly intact. No focal deficits and speech is clear. SKIN: No rash and turgor is normal. Laboratory Laboratory Tests Test 10/29/17 13:05 10/29/17 15:24 White Blood Count 4.6 Red Blood Count 4.54 Hemoglobin 15.7 Hematocrit 43.8 Mean Corpuscular Volume 96.5 Mean Corpuscular Hemoglobin 34.5 Mean Corpuscular Hemoglobin Concent 35.7 Red Cell Distribution Width 14.9 Platelet Count 205 Mean Platelet Volume 7.6 Neutrophils (%) (Auto) 45.1 Lymphocytes (%) (Auto) 46.6 Monocytes (%) (Auto) 7.4 Eosinophils (%) (Auto) 0.2 Basophils (%) (Auto) 0.7 Neutrophils # (Auto) 2.1 Lymphocytes # (Auto) 2.1 Monocytes # (Auto) 0.3 Eosinophils # (Auto) 0.0 Basophils # (Auto) 0.0 CBC Comment DIFF FINAL Differential Comment Prothrombin Time 11.7 Prothromb Time International Ratio 1.1 Blood Urea Nitrogen 23 Creatinine 0.86 Random Glucose 165 Total Protein 6.8 Calcium Level 7.0 Sodium Level 134 Potassium Level 3.4 Chloride Level 103 Carbon Dioxide Level 16.4 Anion Gap 15 Estimat Glomerular Filtration Rate 87 Protein Corrected Calcium 7.2 Troponin I LESS THAN 0.02 B-Type Natriuretic Peptide 33 Blood Gas Puncture Site RT RADIAL Blood Gas Patient Temperature 37.0 Blood Gas HCO3 20 Blood Gas Base Excess -3.5 Blood Gas Oxygen Saturation 96 Arterial Blood pH 7.42 Arterial Blood Partial Pressure CO2 31 Arterial Blood Partial Pressure O2 116 Arterial Blood Oxygen Content 20.0 Arterial Blood Carboxyhemoglobin 1.5 Arterial Blood Methemoglobin 1.8 Blood Gas Hemoglobin 14.8 Oxygen Delivery Device NASAL CANNULA Blood Gas Liter Flow 3 Result Diagram: 10/29/17 1305 10/29/17 1305 Imaging Last 24 hours Impressions Chest X-Ray 10/29/17 1239 Signed Impressions: Service Date/Time: Sunday, October 29, 2017 13:24 - CONCLUSION: No acute cardiopulmonary process Everardo Hogue MD Course Initial EKG is sinus rhythm with nonspecific lateral ST-T change changes. Caprini VTE Risk Assessment Caprini VTE Risk Assessment: Mod/High Risk (score >= 2) Caprini Risk Assessment Model Point Value = 1 Point Value = 2 Point Value = 3 Point Value = 5 Age 41-60 Minor surgery BMI > 25 kg/m2 Swollen legs Varicose veins or History of unexplained or recurrent spontaneous Oral contraceptives or hormone replacement Sepsis (< 1 month) Serious lung disease, including pneumonia (< 1 month) Abnormal pulmonary function Acute myocardial infarction Congestive heart failure (< 1 month) History of inflammatory bowel disease Medical patient at bed rest Age 61-74 Arthroscopic surgery Major open surgery (> 45 min) Laparoscopic surgery (> 45 min) Malignancy Confined to bed (> 72 hours) Immobilizing plaster cast Central venous access Age >= 75 History of VTE Family history of VTE Factor V Leiden Prothrombin [id number] Lupus anticoagulant Anticardiolipin antibodies Elevated serum homocysteine Heparin-induced thrombocytopenia Other congenital or acquired thrombophilia Stroke (< 1 month) Elective arthroplasty Hip, pelvis, or leg fracture Acute spinal cord injury (< 1 month) Prophylaxis Regimen Total Risk Factor Score Risk Level Prophylaxis Regimen 0-1 Low Early ambulation 2 Moderate Order ONE of the following: *Sequential Compression Device (SCD) *Heparin 5000 units SQ BID 3-4 Higher Order ONE of the following medications: *Heparin 5000 units SQ TID *Enoxaparin/Lovenox 40 mg SQ daily (WT < 150 kg, CrCl > 30 mL/min) *Enoxaparin/Lovenox 30 mg SQ daily (WT < 150 kg, CrCl > 10-29 mL/min) *Enoxaparin/Lovenox 30 mg SQ BID (WT < 150 kg, CrCl > 30 mL/min) AND/OR *Sequential Compression Device (SCD) 5 or more Highest Order ONE of the following medications: *Heparin 5000 units SQ TID (Preferred with Epidurals) *Enoxaparin/Lovenox 40 mg SQ daily (WT < 150 kg, CrCl > 30 mL/min) *Enoxaparin/Lovenox 30 mg SQ daily (WT < 150 kg, CrCl > 10-29 mL/min) *Enoxaparin/Lovenox 30 mg SQ BID (WT < 150 kg, CrCl > 30 mL/min) AND *Sequential Compression Device (SCD) Assessment and Plan Assessment and Plan * Chest pain: Patient has history of CAD. He was seen by Dr. Silvestre Haynes of cardiology and the chest pain center. He will spend the evening in the chest pain center to rule out and if so we'll proceed with a chemical stress test. He 'll be discharged home if his stress test was nonischemic. He should follow-up with his PCP and a asset coordinator through the [place]. * Hypertension: Continue current medication. * Hyperlipidemia: Continue current medication. He currently is not on a statin. He should discuss this with his primary care physician and asset coordinator. * Hypokalemia: Patient was given calcium supplementation in the ED. Will repeat BMP in the morning. He should follow-up with his PCP at the [place]. * COPD: Continue current medication. Add DuoNeb's when necessary. Patient is stable at this time. He is agreeable to this plan. J Luis Vega Oct 29, 2017 17:32
[2017-10-29] MEDS ORDERED: RESP: ALBUTEROL 2.5 MG/IPRATROPIUM 0.5 MG NEB (PRN) INH (17:45)
[2017-10-29] MEDS ORDERED: PILL SPLITTER OTHER PRN (18:00)
[2017-10-29] MEDS: PANTOPRAZOLE SOD 40 MG DELAYED RELEASE TAB PO SCH (18:02)
[2017-10-29 18:43] LABS: CREATINE KINASE 212 U/L (39-308)
[2017-10-29 18:56] LABS: CKMB 4.5 NG/ML (0.5-3.6)
[2017-10-29] MEDS: METOPROLOL TARTRATE 25 MG TAB PO SCH (19:26)
[2017-10-29] MEDS: hydrALAZINE HCL 10 MG TAB PO SCH (19:26)
[2017-10-29] MEDS ORDERED: MIRTAZAPINE 15 MG TAB PO SCH (21:00)
[2017-10-29] MEDS ORDERED: GUAIFENESIN 400 MG PO SCH (21:00)
[2017-10-29] MEDS ORDERED: FLUTICASONE EACH NARE SCH (21:00)
[2017-10-29] MEDS: CALCIUM/VITAMIN D 250 MG/125 U TAB PO SCH (21:17)
[2017-10-29] MEDS: BUDESONIDE-FORMOTEROL 160/4.5 MCG INHALER INH SCH (21:17)
[2017-10-29] MEDS: guaiFENesin SOLUTION 200 MG/10 ML CUP PO SCH (21:23)
[2017-10-29 22:38] LABS: ANION GAP 15 MEQ/L (5-15); BICARBONATE 18.4 MEQ/L (21.0-32.0); BLOOD UREA NITROGEN 23 MG/DL (7-18); CHLORIDE 103 MEQ/L (98-107); CREATINE KINASE 168 U/L (39-308); GLOMERULAR FILTRATION RATE 84 ML/MIN (>89); POTASSIUM 3.6 MEQ/L (3.5-5.1); SODIUM (NA) 136 MEQ/L (136-145)
[2017-10-29 23:20] LABS: CALCIUM-PROTEIN CORRECTED 7.3 MG/DL (8.5-10.1)
[2017-10-29 23:21] LABS: CKMB 4.4 NG/ML (0.5-3.6)
[2017-10-30] VITALS (9 sets, daily range): BP systolic 80–201; BP diastolic 50–99; PULSE 52–64; RESP 18; TEMP 97.4–98.1; O2SAT 95–97
[2017-10-30] MEDS ORDERED: ALPRAZolam 0.5 MG TAB PO PRN (00:45)
[2017-10-30] MEDS ORDERED: ALPRAZolam 0.25 MG TAB PO ONE (00:45)
[2017-10-30] MEDS ORDERED: GEMFIBROZIL 600 MG TAB PO SCH (07:00)
[2017-10-30] MEDS ORDERED: cloNIDine HCL 0.1 MG TAB PO PRN (07:15)
[2017-10-30] MEDS ORDERED: CALCIUM CARBONATE 1.25 GM (CA 500 MG) TAB PO ONE (07:45)
[2017-10-30] MEDS: BUDESONIDE-FORMOTEROL 160/4.5 MCG INHALER INH SCH (07:57)
[2017-10-30] MEDS: CALCIUM/VITAMIN D 250 MG/125 U TAB PO SCH (08:00)
[2017-10-30] MEDS: PANTOPRAZOLE SOD 40 MG DELAYED RELEASE TAB PO SCH (08:00)
[2017-10-30] MEDS: guaiFENesin SOLUTION 200 MG/10 ML CUP PO SCH (08:05)
[2017-10-30] MEDS: hydrALAZINE HCL 10 MG TAB PO SCH (08:05)
[2017-10-30] MEDS: METOPROLOL TARTRATE 25 MG TAB PO SCH (08:05)
[2017-10-30] MEDS ORDERED: MINERALS PO SCH (09:00)
[2017-10-30] MEDS ORDERED: NON-FORMULARY DRUG (Coenzyme Q10 (Ubidecarenone) (Co Q-10) 1 CAP) PO SCH (09:00)
[2017-10-30] MEDS ORDERED: LORATADINE 10 MG TAB PO SCH (09:00)
[2017-10-30] MEDS ORDERED: MULTIPLE VITAMINS PO SCH (09:00)
[2017-10-30] MEDS ORDERED: ISOSORBIDE MONONITRATE 60 MG TAB PO SCH (09:00)
[2017-10-30] MEDS ORDERED: MULTIVITAMINS/MINERALS THERAPEUTIC TAB PO SCH (09:00)
[2017-10-30] MEDS ORDERED: TAMSULOSIN HCL 0.4 MG CAP PO SCH (09:00)
[2017-10-30] MEDS ORDERED: ALFUZOSIN HCL 10 MG PO SCH (09:00)
[2017-10-30] MEDS ORDERED: LISINOPRIL 20 MG PO SCH (09:00)
[2017-10-30] MEDS ORDERED: [UNRECOGNIZED DRUG - OTHER] PO SCH (09:00)
[2017-10-30] MEDS ORDERED: ASCORBIC ACID 500 MG TAB PO SCH (09:00)
[2017-10-30] MEDS ORDERED: POTASSIUM CHLORIDE 10 MEQ CAP PO SCH (09:00)
[2017-10-30] MEDS ORDERED: GABAPENTIN 100 MG CAP PO SCH (09:00)
[2017-10-30] MEDS ORDERED: CALCIUM CARBONATE PO SCH (09:00)
[2017-10-30] MEDS ORDERED: VITAMIN D3 PO SCH (09:00)
[2017-10-30] MEDS ORDERED: LISINOPRIL 20 MG TAB PO SCH (09:00)
[2017-10-30] MEDS ORDERED: FLUTICASONE PROPIONATE 50 MCG/ACT 16 GM NASAL SPRAY NASAL SCH (09:00)
[2017-10-30] MEDS ORDERED: ASPIRIN 325 MG TAB PO SCH (09:00)
[2017-10-30 09:37] LABS: BICARBONATE 13.5 MEQ/L (21.0-32.0)
[2017-10-30 10:03] LABS: POTASSIUM 4.6 MEQ/L (3.5-5.1)
[2017-10-30] MEDS ORDERED: SODIUM CHLORID 0.9% 500 ML INJ 500 ML IV ONE (10:45)
[2017-10-30 12:18] LABS: CALCIUM-PROTEIN CORRECTED 7.4 MG/DL (8.5-10.1)
[2017-10-30] MEDS ORDERED: REGADENOSON INJ 0.4 MG/5 ML SYR ONE (13:09)
--- NOTE | 2017-10-30 14:24 | RADRPT ---
EXAM DATE/TIME: 10/30/2017 12:34 [facility] COMPARISON: No previous studies available for comparison. INDICATIONS : Left sided chest pain. Angina. Coronary artery disease. DOSE: 27.2 mCi Tc99m Myoview at stress. 8.6 mCi Tc99m Myoview at rest. 0.4 mg Lexiscan STRESS SYMPTOMS: Stomach cramps. EJECTION FRACTION: 59% MEDICAL HISTORY : Carcinoma, prostate. Hypertension. SURGICAL HISTORY : Coronary artery stent. Prostatectomy. ENCOUNTER: Initial ACUITY: 1 day PAIN SCALE: 3/10 LOCATION: Left chest TECHNIQUE: The patient underwent pharmacologic stress with infusion of prescribed dose. Continuous ECG tracing was monitored during stress. Gated SPECT imaging was performed after stress and conventional SPECT i maging was performed at rest. The examination was performed on a SPECT/CT scanner, both attenuation and non-corrected datasets were reviewed. FINDINGS: DISTRIBUTION: The maximum perfused segment at stress is in the anteroseptal wall. PERFUSION STUDY: The pattern of perfusion at stress is within normal limits. GATED STUDY: There is intact wall motion and thickening without hypokinetic or dyskinetic segments. CONCLUSION: Normal examination. RISK CATEGORY: Low (<1% Annual Mortality Rate) Jayy Ramirez MD on October 30, 2017 at 14:16 Board Certified Radiologist. This report was verified electronically.
--- NOTE | 2017-10-30 15:02 | HHI.DCPOC ---
Discharge Care Plan Diagnosis: (1) Chest pain (2) CAD (coronary artery disease) (3) H/O heart artery stent (4) Hypertension (5) Hyperlipidemia (6) COPD (chronic obstructive pulmonary disease) (7) Hypocalcemia Goals to Promote Your Health * To prevent worsening of your condition and complications * To maintain your health at the optimal level Directions to Meet Your Goals Take your medications as prescribed Follow your dietary instruction Follow activity as directed Keep your appointments as scheduled Take your immunizations and boosters as scheduled If your symptoms worsen call your PCP, if no PCP go to Urgent Care Center or Emergency Room Smoking is Dangerous to Your Health. Avoid second hand smoke Call the 24-hour hour crisis hotline for domestic abuse at J Luis Vega Oct 30, 2017 15:02
--- NOTE | 2017-10-30 21:56 | TR ---
Date Performed: 10/30/2017 Time Performed: 13:04:21 DOCTOR: Laine Bishop DRUG LIST: CLINICAL HISTORY: REASON FOR TEST: Angina REASON FOR ENDING: OBSERVATION: CONCLUSION: Lexiscan stress test was performed under standard four minute protocol. Radionuclid e was injected one minute prior to ending the test. No electrocardiographic abormalities were present to suggest ischemia. Nuclear imaging and interpretation are pending. COMMENTS:
--- NOTE | 2017-10-30 22:01 | EKG ---
Date Performed: 10/29/2017 Time Performed: 21:03:39 PTAGE: 72 years EKG: Sinus rhythm NONSPECIFIC ST & T-WAVE ABNORMALITY BORDERLINE ECG Since PREVIOUS TRACING , no significant change noted PREVIOUS TRACIN10/29/2017 17.34 DOCTOR: Laine Bishop Interpretating Date/Time 10/30/2017 22:00:18
--- NOTE | 2017-10-30 22:03 | EKG ---
Date Performed: 10/29/2017 Time Performed: 17:34:43 PTAGE: 72 years EKG: Sinus rhythm WITH OCCASIONAL VENTRICULAR PREMATURE COMPLEXES SEPTAL MYOCARDIAL INFARCTION ABNORMAL ECG Since PREVIOUS TRACING , no significant change noted PREVIOUS TRACIN10/29/2017 13.31 DOCTOR: Laine Bishop Interpretating Date/Time 10/30/2017 22:02:37
--- NOTE | 2017-10-30 22:05 | EKG ---
Date Performed: 10/29/2017 Time Performed: 13:31:59 PTAGE: 72 years EKG: Sinus rhythm WITH OCCASIONAL VENTRICULAR PREMATURE COMPLEXES NONSPECIFIC ST & T-WAVE ABNORMALITY BORDERLINE ECG S jay jay PREVIOUS TRACING , no significant change noted PREVIOUS TRACIN07/08/2017 18.08 DOCTOR: Laine Bishop Interpretating Date/Time 10/30/2017 22:03:55
== END 2017-10-30 16:35 | disposition home or self-care (01) ==
LOC: NEPE 11:42 → NEDA 16:03 → NEPHCDU 17:48
PROVIDERS: ADMIT Internal Medicine Cardiovascular Disease; ATTEND Internal Medicine Cardiovascular Disease
DX: J44.9 Chronic obstructive pulmonary disease, unspecified (principal); R07.9 Chest pain, unspecified; Z95.5 Presence of coronary angioplasty implant and graft; Z87.891 Personal history of nicotine dependence; I10 Essential (primary) hypertension; Z79.899 Other long term (current) drug therapy; I25.10 Atherosclerotic heart disease of native coronary artery without angina pectoris; F41.9 Anxiety disorder, unspecified; F32.9 Major depressive disorder, single episode, unspecified; E78.00 Pure hypercholesterolemia, unspecified; Z86.73 Personal history of transient ischemic attack (TIA), and cerebral infarction without residual deficits; Z85.46 Personal history of malignant neoplasm of prostate; M47.9 Spondylosis, unspecified; I60.9 Nontraumatic subarachnoid hemorrhage, unspecified; F42.9 Obsessive-compulsive disorder, unspecified; F11.20 Opioid dependence, uncomplicated; E87.6 Hypokalemia; E83.51 Hypocalcemia; R94.31 Abnormal electrocardiogram [ECG] [EKG]
CPT/HCPCS: 36600; 71010; 78452; 80048; 82550; 82552; 82805; 83880; 84155; 84484; 85025; 85610; 93005; 93017; 96361; 96365; 96366; 99285; A9502; G0378; J0610; J2785; J7030; J7040

== ENCOUNTER → 2017-11-14 | Outpatient (CLI) | payer MEDICARE ==
[~2017-11-14] MED LIST changes: -ALBU8I INH; +ALFU10TA3 PO; +ALLO300 PO; -ALLO300T2 PO; +AMLO10 PO; -AMLO5TAB96 PO; +ASCO500T PO; -ASPI81 PO; +ASPI81TA16 PO; +CALC600C3 PO; +CELL1DRO EACH EYE; +CHLORHEXIDINE GLUCONATE 2 % 1 PACK (2 CLOTHS) TOPICAL PRN; -CHOL1CAP6 PO; +CLAR10TA7 PO; -CO Q30CA PO; +COEN1CAP PO; +CYAN1000P IM; +FISH100020 PO; -FISH500C PO; +FLUT1SPR5 EACH NARE; +FOSA70TA PO; +GEMF600 PO; +GUAI400T32 PO; +HYDR-3798 PO; -HYDR10TA23 PO; +INSULIN HUMAN REGULAR 1,000 UNITS/10 ML VIAL SQ PRN; -ISOS60 PO; +ISOS60TA PO; +LACTATED RINGER'S 1000 ML IV PRN; -LISI-366 PO; +LISI40TA PO; -Lomotil; -METO25 PO; +METO50TA PO; +METOPROLOL TARTRATE 25 MG TAB PO PRN; +MILK140C PO; -MILK1CAP PO; -MOBI15TA PO; +MULTTAB62 PO; +NEUR100C PO; -NITR.4 SL; +NITR0.4S SL; +POTA10CA PO; +POVIDONE IODINE 5% (ANTISEPSIS KIT) 4 APPLICATIONS EACH NARE PRN; +REME15TA PO; -ROSU10 PO; -SENTTAB2 PO; -SERT-129 PO; +SODIUM CHLORID 0.9% 500 ML IV PRN; +SYMB160A INH; -SYMB80AE INH; -TAMS0.4C67 PO; -TRAZ50TA4 PO; +VENTAER INH; -VITA100020 IM; -VITA500T10 PO
== END ==
LOC: HSDC 06:58
PROVIDERS: ATTEND Hospitalist
DX: R13.10 Dysphagia, unspecified (principal); K21.9 Gastro-esophageal reflux disease without esophagitis
CPT/HCPCS: 91010

== ENCOUNTER 2018-04-08 13:33 | Observation (INO) | payer MEDICARE ==
[~2018-04-08] VITALS: Ht 172.7 cm; Wt 83.0 kg
[~2018-04-08 13:33] MED LIST changes: -CHLORHEXIDINE GLUCONATE 2 % 1 PACK (2 CLOTHS) TOPICAL PRN; -INSULIN HUMAN REGULAR 1,000 UNITS/10 ML VIAL SQ PRN; -LACTATED RINGER'S 1000 ML IV PRN; -METOPROLOL TARTRATE 25 MG TAB PO PRN; -POVIDONE IODINE 5% (ANTISEPSIS KIT) 4 APPLICATIONS EACH NARE PRN; -SODIUM CHLORID 0.9% 500 ML IV PRN
[2018-04-08 13:43] VITALS: BP 163/90; PULSE 72; RESP 20; TEMP 98.1; O2SAT 98
[2018-04-08 14:07] VITALS: O2SAT 97
[2018-04-08 14:43] LABS: AUTOMATED NEUTROPHIL # 6.2 TH/MM3 (1.8-7.7); BASOPHIL % 0.5 % (0.0-2.0); EOSINOPHIL % 0.5 % (0.0-4.0); HEMATOCRIT 39.7 % (39.0-51.0); HEMOGLOBIN 13.7 GM/DL (13.0-17.0); LYMPH % 23.3 % (9.0-44.0); LYMPHOCYTE # 2.1 TH/MM3 (1.0-4.8); MEAN CELL VOLUME 94.5 FL (80.0-100.0); MEAN CORPUSCULAR HEMOGLOBIN 32.7 PG (27.0-34.0); MEAN CORPUSCULAR HGB CONC 34.6 % (32.0-36.0); MEAN PLATELET VOLUME 8.6 FL (7.0-11.0); MONOCYTE # 0.4 TH/MM3 (0-0.9); NEUT % 70.7 % (16.0-70.0); PLATELET COUNT 127 TH/MM3 (150-450); RED CELL DISTRIBUTION WIDTH 12.9 % (11.6-17.2); WHITE BLOOD COUNT 8.8 TH/MM3 (4.0-11.0)
--- NOTE | 2018-04-08 14:44 | RADRPT ---
EXAM DATE/TIME: 04/08/2018 14:04 [facility] COMPARISON: CHEST SINGLE AP, October 29, 2017, 13:24. INDICATIONS : Chest pain and shortness of breath. MEDICAL HISTORY : Chronic obstructive pulmonary disease. Myocardial infarction. SURGICAL HISTORY : Coronary artery stent. ENCOUNTER: Initial ACUITY: 1 day PAIN SCORE: 4/10 LOCATION: Bilateral chest FINDINGS: A single view of the chest demonstrates the lungs to be symmetrically aerated without evidence of mas s, infiltrate or effusion. The cardiomediastinal contours are unremarkable. Osseous structures are intact. CONCLUSION: No acute disease. Juan C Smiley MD FACR on April 08, 2018 at 14:41 Board Certified Radiologist. This report was verified electronically.
[2018-04-08 14:53] LABS: INTERNATIONAL NORMALIZED RATIO 1.1 RATIO
[2018-04-08] MEDS ORDERED: REGL10TA5 PO (14:56)
[2018-04-08] MEDS ORDERED: ATOR40TA16 PO (14:56)
--- NOTE | 2018-04-08 15:11 | PD ---
HPI Chief Complaint: Chest Pain Time Seen by Provider: 13:59 Travel History International Travel<30 days: No Contact w/Intl Traveler<30days: No Traveled to known affect area: No History of Present Illness HPI 73-year-old male the presents to the ED for evaluation of chest pain. Patient has a significant history of ACS as well as esophageal strictures. Patient reports that yesterday he was noticing that he had some trouble swallowing. Per patient he was able to swallow with some difficulty. Today he try to swallow and he became more significant to the point where he try to swallow his pills and it came back up. Per patient he developed the chest pain afterwards. He does not know if is related to the esophageal spasm or something else. He follows with a GI doctor in the area and has had 7 procedures to get the stricture is dilated. He reports last time was in December of this year. He states that the pain only comes and goes and feels like little stings on the chest. Only started after this happened. Denies any urinary symptoms. Per patient he does have diarrhea which has increased today. He was told to come here by his doctor. Per patient his pain currently is 5 out of 10. He states compliance with his medications. He takes multiple medications. He has no allergies to medication. No chest pain currently. No shortness of breath. No abdominal pain. No fevers chills or sweats. PFSH Past Medical History Blood Disorders: No Anxiety: Yes Depression: Yes Heart Rhythm Problems: Yes (NEW IRREGULAR HEART RHYTHEM ) Cancer: Yes (PROSTATE with radiation) Cardiac Catheterization: Yes (08/2012) Cardiovascular Problems: Yes High Cholesterol: Yes Chemotherapy: No Chest Pain: Yes Congestive Heart Failure: No Cerebrovascular Accident: Yes Coronary Artery Disease: Yes Diabetes: No Diminished Hearing: No Diverticulitis: Yes Endocrine: Yes Gastrointestinal Disorders: Yes (DIVERTICULITIS/GERD: Barretts esophagus) Gout: Yes Genitourinary: Yes (re-occuring prostate cancer; hx kidney stone) Hypertension: Yes Immune Disorder: No Implanted Vascular Access Dvce: Yes Medical other: Yes (colon polyps: chronic low back pain;acute pancreatitis) Musculoskeletal: Yes (DJD spine:osteoarthritis) Neurologic: Yes (SAH 01/1988 TREATED MEDICALLY) Psychiatric: Yes (anxiety;obsessive-compulsive disorder) Reproductive: No Respiratory: Yes (copd) Immunizations Current: No Myocardial Infarction: No Pancreatitis: Yes Radiation Therapy: Yes Thyroid Disease: No PNEUMOCCOCAL Vaccine (Year): 1 Past Surgical History Abdominal Surgery: Yes (sigmoid colectomy) Body Medical Devices: STENT CARDIAC Cardiac Surgery: Yes (stent placement in 2007) Coronary Artery Bypass Graft: No Coronary Stent: Yes (08/20/08) Genitourinary Surgery: Yes (POLYP REMOVED WITH COLONOSCOPY) Tonsillectomy: Yes ( A CHILD) Other Surgery: Yes Social History Alcohol Use: Yes (socially) Tobacco Use: No (quit 1987) Substance Use: Yes Allergies-Medications (Allergen,Severity, Reaction): Coded Allergies: No Known Allergies (Unverified Allergy, Unknown, 04/08/18) Reported Meds & Prescriptions Reported Meds & Active Scripts Active Reported Reglan (Metoclopramide HCl) 10 Mg Tab 10 Mg PO BID Atorvastatin (Atorvastatin Calcium) 40 Mg Tab 40 Mg PO HS Red Yeast Rice (Red Yeast Rice Extract) 600 Mg Tab 600 Mg PO BID Multi-Vitamin/Minerals (Multiple Vitamins W/ Minerals) 1 Tab Tab 1 Tab PO DAILY Milk Thistle Unknown Strength Cap 1 Cap PO DAILY Nitrostat SL (Nitroglycerin) 0.4 Mg Subl 0.4 Mg SL DIRECTED PRN 1 tablet under the tongue as needed for chest pain. Repeat every 5 minutes for a total of 3 DOSES or call 911 if NO relief. Fish Oil 1000 mg ([place]-3 Fatty Acids) 300 Mg-1,000 Mg Cap 4 Cap PO BID Potassium Chloride ER (Potassium Chloride) 10 Meq Cap 10 Meq PO DAILY Protonix (Pantoprazole Sodium) 40 Mg Tab 40 Mg PO DAILY Remeron (Mirtazapine) 15 Mg Tab 7.5 Mg PO HS Metoprolol Tartrate 50 Mg Tab 25 Mg PO BID Claritin (Loratadine) 10 Mg Tablet 10 Mg PO DAILY Lisinopril 40 Mg Tab 20 Mg PO DAILY Isosorbide Mononitrate ER (Isosorbide Mononitrate) 60 Mg Tab 60 Mg PO DAILY Hydralazine HCl 10 Mg Tablet 10 Mg PO BID Guaifenesin 400 Mg Tab 400 Mg PO BID Neurontin (Gabapentin) 100 Mg Cap 100 Mg PO DAILY Restasis Opth (Cyclosporine Opth) 0.05% Emul 1 Drop EACH EYE BID Refresh Celluvisc Unit-Dose Opth Drops (Carboxymethylcellulose Sodium Opth Drops ) 1% Drops 1 Drop EACH EYE QID PRN Calcium 600 + Vit D 400 Softgl (Calcium Carbonate/Vitamin D3) 600 Mg-400 Capsule 2 Cap PO DAILY Aspirin Adult Low Strength (Aspirin) 81 Mg Tabdr 325 Mg PO DAILY Norvasc (Amlodipine Besylate) 10 Mg Tab 10 Mg PO DAILY Xanax (Alprazolam) 0.5 Mg Tab 0.5 Mg PO Q8H PRN Zyloprim (Allopurinol) 300 Mg Tab 450 Mg PO DAILY Alfuzosin HCl ER (Alfuzosin HCl) 10 Mg Tab 10 Mg PO DAILY Ventolin Hfa 18 GM Inh (Albuterol Sulfate) 90 Mcg/Act Aer 2 Puff INH Q6H PRN Review of Systems Except as stated in HPI: all other systems reviewed are Neg Physical Exam Narrative GENERAL: SKIN: Warm and dry. HEAD: Atraumatic. Normocephalic. EYES: Pupils equal and round. No scleral icterus. No injection or drainage. ENT: No nasal bleeding or discharge. Mucous membranes pink and moist. Tongue is midline. No uvula deviation. NECK: Trachea midline. No JVD. CARDIOVASCULAR: Regular rate and rhythm. No murmurs, S3, S4. RESPIRATORY: No accessory muscle use. Clear to auscultation. Breath sounds equal bilaterally. GASTROINTESTINAL: Abdomen soft, non-tender, nondistended. Hepatic and splenic margins not palpable. MUSCULOSKELETAL: Extremities without clubbing, cyanosis, or edema. No obvious deformities. Full range of motion of the upper and lower extremities bilaterally. 2+ pulses bilaterally. NEUROLOGICAL: Awake and alert. No obvious cranial nerve deficits. Motor grossly within normal limits. Five out of 5 muscle strength in the arms and legs. Normal speech. PSYCHIATRIC: Appropriate mood and affect; insight and judgment normal. Data Data Last Documented VS Vital Signs Date Time Temp Pulse Resp B/P (MAP) Pulse Ox O2 Delivery O2 Flow Rate FiO2 04/08/18 14:07 97 Nasal Cannula 2.00 04/08/18 13:43 98.1 72 20 163/90 (114) Orders Orders Electrocardiogram (04/08/18 14:03) Complete Blood Count With Diff (04/08/18 14:03) Comprehensive Metabolic Panel (04/08/18 14:03) Ckmb (Isoenzyme) Profile (04/08/18 14:03) Troponin I (04/08/18 14:03) B-Type Natriuretic Peptide (04/08/18 14:03) Prothrombin Time / Inr (Pt) (04/08/18 14:03) Act Partial Throm Time (Ptt) (04/08/18 14:03) Lipase (04/08/18 14:03) Magnesium (Mg) (04/08/18 14:03) Thyroid Stimulating Hormone (04/08/18 14:03) Chest, Single Ap (04/08/18 14:03) Iv Access Insert/Monitor (04/08/18 14:03) Ecg Monitoring (04/08/18 14:03) Oximetry (04/08/18 14:03) Barium Swallow (04/08/18 ) CKMB (04/08/18 14:32) CKMB% (04/08/18 14:32) Admit Order (Ed Use Only) (04/08/18 16:45) Diet Clear Liquid (04/08/18 Dinner) Consent (04/08/18 16:45) Npo After Midnight W/ Po Meds (04/09/18 Breakfast) Labs Laboratory Tests Test 04/08/18 14:32 White Blood Count 8.8 TH/MM3 Red Blood Count 4.20 MIL/MM3 Hemoglobin 13.7 GM/DL Hematocrit 39.7 % Mean Corpuscular Volume 94.5 FL Mean Corpuscular Hemoglobin 32.7 PG Mean Corpuscular Hemoglobin Concent 34.6 % Red Cell Distribution Width 12.9 % Platelet Count 127 TH/MM3 Mean Platelet Volume 8.6 FL Neutrophils (%) (Auto) 70.7 % Lymphocytes (%) (Auto) 23.3 % Monocytes (%) (Auto) 5.0 % Eosinophils (%) (Auto) 0.5 % Basophils (%) (Auto) 0.5 % Neutrophils # (Auto) 6.2 TH/MM3 Lymphocytes # (Auto) 2.1 TH/MM3 Monocytes # (Auto) 0.4 TH/MM3 Eosinophils # (Auto) 0.0 TH/MM3 Basophils # (Auto) 0.0 TH/MM3 CBC Comment DIFF FINAL Differential Comment Prothrombin Time 11.0 SEC Prothromb Time International Ratio 1.1 RATIO Activated Partial Thromboplast Time 25.5 SEC Blood Urea Nitrogen 20 MG/DL Creatinine 1.55 MG/DL Random Glucose 120 MG/DL Total Protein 7.0 GM/DL Albumin 3.5 GM/DL Calcium Level 8.1 MG/DL Magnesium Level 1.6 MG/DL Alkaline Phosphatase 133 U/L Aspartate Amino Transf (AST/SGOT) 254 U/L Alanine Aminotransferase (ALT/SGPT) 116 U/L Total Bilirubin 1.5 MG/DL Sodium Level 143 MEQ/L Potassium Level 3.1 MEQ/L Chloride Level 108 MEQ/L Carbon Dioxide Level 23.2 MEQ/L Anion Gap 12 MEQ/L Estimat Glomerular Filtration Rate 44 ML/MIN Total Creatine Kinase 215 U/L Creatine Kinase MB 4.9 NG/ML Troponin I LESS THAN 0.02 NG/ML B-Type Natriuretic Peptide 75 PG/ML Lipase 270 U/L Thyroid Stimulating Hormone 3rd Gen 2.690 uIU/ML MDM Medical Decision Making Medical Screen Exam Complete: Yes Emergency Medical Condition: Yes Medical Record Reviewed: Yes Interpretation(s) CBC & BMP Diagram 04/08/18 14:32 Total Protein 7.0, Albumin 3.5, Calcium Level 8.1 L, Magnesium Level 1.6, Alkaline Phosphatase 133 H, Aspartate Amino Transf (AST/SGOT) 254 H, Alanine Aminotransferase (ALT/SGPT) 116 H, Total Bilirubin 1.5 H Differential Diagnosis Esophageal stricture versus dysphagia versus chest pain versus a typical chest pain versus ACS Narrative Course 73-year-old male the presents to the ED for evaluation of dysphagia. Patient was properly examined and was found to have signs and symptoms consistent with appears to be dysphagia. Labs and imaging order. Barium swallow ordered. Labs and imaging showed esophageal stricture. Patient able to swallow some liquids but cannot swallow pills or solids. Patient does have chronic medical issues and takes multiple medications. Case was discussed with my attending agrees to patient likely requires dilation sooner rather than later. Case discussed with Dr. Malone who agrees to see the patient on admission. Wants patient admitted to medicine. Case discussed with Dr Mathews who agrees to admission to his service. Patient agrees with admission. Diagnosis Primary Impression: Dysphagia Qualified Codes: R13.10 - Dysphagia, unspecified Additional Impression: Esophageal stricture Admitting Information Admitting Physician Requests: Vitaly Portillo April 08, 2018 15:11
[2018-04-08 15:15] LABS: ALBUMIN 3.5 GM/DL (3.4-5.0); ALT (GPT) 116 U/L (12-78); AST (GOT) 254 U/L (15-37); BICARBONATE 23.2 MEQ/L (21.0-32.0); BLOOD UREA NITROGEN 20 MG/DL (7-18); CALCIUM 8.1 MG/DL (8.5-10.1); CHLORIDE 108 MEQ/L (98-107); CREATININE 1.55 MG/DL (0.60-1.30); GLOMERULAR FILTRATION RATE 44 ML/MIN (>89); GLUCOSE,RANDOM 120 MG/DL (74-106); MAGNESIUM 1.6 MG/DL (1.5-2.5); SODIUM (NA) 143 MEQ/L (136-145)
[2018-04-08 15:18] LABS: ALKALINE PHOSPHATASE 133 U/L (45-117); TOTAL BILIRUBIN ADULT 1.5 MG/DL (0.2-1.0); TROPONIN I LESS THAN 0.02 NG/ML (0.02-0.05)
--- NOTE | 2018-04-08 15:59 | RADRPT ---
EXAM DATE/TIME: 04/08/2018 15:20 [facility] COMPARISON: No previous studies available for comparison. INDICATIONS : Difficulty swallowing. FLUORO TIME: 0.8 minutes IMAGE COUNT: 4 CONTRAST: 1. Liquid E-Z Paque Barium Sulfate (60% w/v, 41% w.w) MEDICAL HISTORY : Chronic obstructive pulmonary disease. Myocardial infarction. SURGICAL HISTORY : Coronary artery stent. ENCOUNTER: Initial ACUITY: 2 days PAIN SCORE: 8/10 LOCATION: esophagus. FINDINGS: Patient has the history of known distal esophageal stricture. Patient has history of previous multip le dilatations. There is marked presbyesophagus the stricture distal esophagus involving 6 to 8 cm distal esophagus. Direct visualization is suggested. Hypopharynx was not evaluated. CONCLUSION: Recurrent distal esophageal stricture. Juan C Smiley MD FACR on April 08, 2018 at 15:56 Board Certified Radiologist. This report was verified electronically.
--- NOTE | 2018-04-08 17:03 | PD.CONS ---
HPI History of Present Illness This is a 73 year old male who presented to the hospital on 04/08/2018. He initially was evaluated in the emergency room for chest pain, but current symptoms appear to be related to dysphasia. He was in his usual state of health up until 3 days ago when he noticed dysphasia of food and water. He states he was unable to swallow pills at one point but but he did vomit the water back up. Patient also states he has increased oral mucous which is also affecting his swallowing. Patient has significant history of esophageal strictures, Douglas's esophagus and according to patient he was dilated in December [address] Bashir, and May 2017 per . Currently patient denies any decrease in his appetite, no nausea no dyspepsia. Patient does note chronic diarrhea but this has been known to be secondary to the scar tissue after radiation back in 2014. Patient does state weekly alcohol consumption 1- 2 drinks socially, currently non-smoker since 1987. Currently hemoglobin per the labs is 13.7, white count 8.8, bilirubin 1.5, AST 254, ALT 116, and alkaline phosphatase 133. According to the record patient has history of diverticulitis and polyps. Patient had barium swallow in the emergency room setting which showed distal stricture in the esophagus. Currently patient denies any abdominal pain, the patient does have some noted bloating and mild abdominal distention. (Jessica Ramey) PFSH Past Medical History According to the record and patient Prostate cancer with radiation Cardiovascular disease with heart cath Hyperlipidemia Chest pain CVA Hiatal hernia Douglas's esophagus Esophageal strictures multiple Colon polyp Osteoarthritis Degenerative disc disease Anxiety with obsessive-compulsive disorder COPD Pancreatitis Diverticulitis history of kidney stones as well as reoccurring prostate cancer Past Surgical History Most recent surgery noted left inguinal hernia repair 08/2017 Cardiac stent Sigmoid colectomy on 07/[address] holt to 2-3 years ago Tonsillectomy Multiple EGDs (Jessica Ramey) Coded Allergies: No Known Allergies (Unverified Allergy, Unknown, 04/08/18) Social History Positive for alcohol socially which is 1-2 drinks at least on a weekly basis None tobacco quit 1987 (Jessica Ramey) Review of Systems Gastrointestinal: COMPLAINS OF: Diarrhea (Chronic 2 today), Vomiting, Difficulty Swallowing (Jessica Ramey) GI Exam Vitals I&O Vital Signs Date Time Temp Pulse Resp B/P (MAP) Pulse Ox O2 Delivery O2 Flow Rate FiO2 04/08/18 14:07 97 Nasal Cannula 2.00 04/08/18 13:43 98.1 72 20 163/90 (114) 98 Imaging Last Impressions Chest X-Ray 04/08/18 1403 Signed Impressions: Service Date/Time: Sunday, April 08, 2018 14:04 - CONCLUSION: No acute disease. Juan C Smiley MD FACR Barium Swallow X-Ray 04/08/18 0000 Signed Impressions: Service Date/Time: Sunday, April 08, 2018 15:20 - CONCLUSION: Recurrent distal esophageal stricture. Juan C Smiley MD FACR Laboratory Test 04/08/18 14:32 White Blood Count 8.8 TH/MM3 Red Blood Count 4.20 MIL/MM3 Hemoglobin 13.7 GM/DL Hematocrit 39.7 % Mean Corpuscular Volume 94.5 FL Mean Corpuscular Hemoglobin 32.7 PG Mean Corpuscular Hemoglobin Concent 34.6 % Red Cell Distribution Width 12.9 % Platelet Count 127 TH/MM3 Mean Platelet Volume 8.6 FL Neutrophils (%) (Auto) 70.7 % Lymphocytes (%) (Auto) 23.3 % Monocytes (%) (Auto) 5.0 % Eosinophils (%) (Auto) 0.5 % Basophils (%) (Auto) 0.5 % Neutrophils # (Auto) 6.2 TH/MM3 Lymphocytes # (Auto) 2.1 TH/MM3 Monocytes # (Auto) 0.4 TH/MM3 Eosinophils # (Auto) 0.0 TH/MM3 Basophils # (Auto) 0.0 TH/MM3 CBC Comment DIFF FINAL Differential Comment Prothrombin Time 11.0 SEC Prothromb Time International Ratio 1.1 RATIO Activated Partial Thromboplast Time 25.5 SEC Blood Urea Nitrogen 20 MG/DL Creatinine 1.55 MG/DL Random Glucose 120 MG/DL Total Protein 7.0 GM/DL Albumin 3.5 GM/DL Calcium Level 8.1 MG/DL Magnesium Level 1.6 MG/DL Alkaline Phosphatase 133 U/L Aspartate Amino Transf (AST/SGOT) 254 U/L Alanine Aminotransferase (ALT/SGPT) 116 U/L Total Bilirubin 1.5 MG/DL Sodium Level 143 MEQ/L Potassium Level 3.1 MEQ/L Chloride Level 108 MEQ/L Carbon Dioxide Level 23.2 MEQ/L Anion Gap 12 MEQ/L Estimat Glomerular Filtration Rate 44 ML/MIN Total Creatine Kinase 215 U/L Creatine Kinase MB 4.9 NG/ML Troponin I LESS THAN 0.02 NG/ML B-Type Natriuretic Peptide 75 PG/ML Lipase 270 U/L Thyroid Stimulating Hormone 3rd Gen 2.690 uIU/ML Physical Examination HEENT: ; normocephalic; atraumatic; no obvious jaundice , speech clear and understandable NECK: Neck is supple, CHEST: Chest is clear without audible rhonchi or wheezing CARDIAC: Regular rate and rhythm no obvious murmur ABDOMEN: Soft but taut, round, mild distention, bowel sounds are present in all four quadrants. EXTREMITIES: No clubbing, cyanosis, or edema. SKIN: Normal; no rash; no jaundice. STAFF ELECTRICAL ENGINEER: alert and oriented times three., (Jessica Ramey) Assessment and Plan Assessment: (1) Esophageal stricture ICD Codes: K22.2 - Esophageal obstruction Status: Acute (2) Dysphagia ICD Codes: R13.10 - Dysphagia, unspecified Status: Acute (3) GERD (gastroesophageal reflux disease) ICD Codes: K21.9 - GERD (gastroesophageal reflux disease) Status: Acute Plan 73-year-old male with known Douglas's esophagus and history of multiple esophageal strictures that have been dilated. According to the record one was done in May 2017 and patient states also done December 2017. Was in his usual state of health up until the past 3 days when he began having trouble with food and liquids. Patient at one point was able to swallow pills but water would not go down after the pills. He has been able to take a few sips of water today without any nausea or vomiting. Patient has chronic diarrhea which he states he is secondary to radiation treatment he had received for his prostate cancer. Colonoscopy was done 2-3 years ago which showed scar tissue according to patient. Currently stools are loose but not watery which appears to be functional and his norm at this time.. Labs noted elevated LFTs AST 254 ALT 116, bilirubin 1.5 and alkaline phosphatase 133. This is probably related to his alcohol consumption which appears to be chronic. Do not see any other LFTs in patient's current records here at [place] [facility]. Will evaluate further labs for liver workup. Plan Consent for EGD in the a.m. Labs for liver workup N.p.o. at midnight May trial clear liquids but with safety and caution PPI IV Reflux precautions Discussed avoidance of alcohol Further recommendations to follow Patient was seen per myself and Dr. Yu, note was written on his behalf (Jessica Ramey) Physician Comments Seen and examined with [employer], EGD/Dlation planned for tomorrow. Liquid diet. Hold anticoagulation. Thank you (Chema Yu MD) Problem Qualifiers (1) Dysphagia: Qualified Codes: R13.10 - Dysphagia, unspecified Jessica Ramey April 08, 2018 17:03 Chema Yu MD April 09, 2018 12:21
[2018-04-08] MEDS ORDERED: ALBUTEROL SULFATE 90 MCG/ACT HFA 8 GM INHALER INH PRN (17:30)
[2018-04-08] MEDS ORDERED: ALPRAZolam 0.5 MG TAB PO PRN (17:30)
--- NOTE | 2018-04-08 17:39 | HHI.HP ---
[facility] Ad[facility] Diagnosis acute esophageal stricture, dysphagia Diagnoses: Chief Complaint: Unable to swallow Travel History International Travel<30 Days: No Contact w/Intl Traveler <30 Da: No Traveled to Known Affected Are: No History of Present Illness 73 Y/O male with a medical history significant for Barretts esophagus, cad, diverticulitis, prostate cancer with recurrent esophageal strictures requiring dilation who presented with complaint of inability to swallow his pills. He can swallow some liquids but no solids. Previously had about 7 esophageal dilation. He reports some associated chest discomfort as he tried to swallow. Currently denies any chest pain. Imaging here consistent with esophageal stricture. GI has been consulted and planning for endoscopy tomorrow. He denies abdominal pain or nausea. Review of Systems Constitutional: DENIES: Fever, Weight loss Respiratory: DENIES: Cough, Shortness of breath Cardiovascular: COMPLAINS OF: Chest pain, DENIES: Palpitations, Dyspnea on Exertion Musculoskeletal: COMPLAINS OF: Neck pain (Chronic) Except as stated in HPI: all other systems reviewed are Neg Past Family Social History Past Medical History Prostate cancer with radiation Cardiovascular disease with heart cath Hyperlipidemia Chest pain CVA Hiatal hernia Douglas's esophagus Esophageal strictures multiple Colon polyp Osteoarthritis Degenerative disc disease Anxiety with obsessive-compulsive disorder COPD Pancreatitis Diverticulitis history of kidney stones as well as reoccurring prostate cancer Past Surgical History left inguinal hernia repair 08/2017 Sigmoid colectomy on 07/2015 Tonsillectomy Multiple EGDs Reported Medications Reported Meds & Active Scripts Active Reported Reglan (Metoclopramide HCl) 10 Mg Tab 10 Mg PO BID Atorvastatin (Atorvastatin Calcium) 40 Mg Tab 40 Mg PO HS Red Yeast Rice (Red Yeast Rice Extract) 600 Mg Tab 600 Mg PO BID Multi-Vitamin/Minerals (Multiple Vitamins W/ Minerals) 1 Tab Tab 1 Tab PO DAILY Milk Thistle Unknown Strength Cap 1 Cap PO DAILY Nitrostat SL (Nitroglycerin) 0.4 Mg Subl 0.4 Mg SL DIRECTED PRN 1 tablet under the tongue as needed for chest pain. Repeat every 5 minutes for a total of 3 DOSES or call 911 if NO relief. Fish Oil 1000 mg ([place]-3 Fatty Acids) 300 Mg-1,000 Mg Cap 4 Cap PO BID Potassium Chloride ER (Potassium Chloride) 10 Meq Cap 10 Meq PO DAILY Protonix (Pantoprazole Sodium) 40 Mg Tab 40 Mg PO DAILY Remeron (Mirtazapine) 15 Mg Tab 7.5 Mg PO HS Metoprolol Tartrate 50 Mg Tab 25 Mg PO BID Claritin (Loratadine) 10 Mg Tablet 10 Mg PO DAILY Lisinopril 40 Mg Tab 20 Mg PO DAILY Isosorbide Mononitrate ER (Isosorbide Mononitrate) 60 Mg Tab 60 Mg PO DAILY Hydralazine HCl 10 Mg Tablet 10 Mg PO BID Guaifenesin 400 Mg Tab 400 Mg PO BID Neurontin (Gabapentin) 100 Mg Cap 100 Mg PO DAILY Restasis Opth (Cyclosporine Opth) 0.05% Emul 1 Drop EACH EYE BID Refresh Celluvisc Unit-Dose Opth Drops (Carboxymethylcellulose Sodium Opth Drops ) 1% Drops 1 Drop EACH EYE QID PRN Calcium 600 + Vit D 400 Softgl (Calcium Carbonate/Vitamin D3) 600 Mg-400 Capsule 2 Cap PO DAILY Aspirin Adult Low Strength (Aspirin) 81 Mg Tabdr 325 Mg PO DAILY Norvasc (Amlodipine Besylate) 10 Mg Tab 10 Mg PO DAILY Xanax (Alprazolam) 0.5 Mg Tab 0.5 Mg PO Q8H PRN Zyloprim (Allopurinol) 300 Mg Tab 450 Mg PO DAILY Alfuzosin HCl ER (Alfuzosin HCl) 10 Mg Tab 10 Mg PO DAILY Ventolin Hfa 18 GM Inh (Albuterol Sulfate) 90 Mcg/Act Aer 2 Puff INH Q6H PRN Allergies: Coded Allergies: No Known Allergies (Unverified Allergy, Unknown, 04/08/18) Family History Reviewed and is noncontributory. Social History Positive for alcohol socially which is 1-2 drinks at least on a weekly basis None tobacco quit 1987 Physical Exam Vital Signs Vital Signs Date Time Temp Pulse Resp B/P (MAP) Pulse Ox O2 Delivery O2 Flow Rate FiO2 04/08/18 14:07 97 Nasal Cannula 2.00 04/08/18 13:43 98.1 72 20 163/90 (114) 98 Physical Exam GENERAL: This is a well-nourished, well-developed patient, in no apparent distress. SKIN: No rashes, ecchymoses or lesions. Cool and dry. HEAD: Atraumatic. Normocephalic. No temporal or scalp tenderness. EYES: Pupils equal round and reactive. Extraocular motions intact. No scleral icterus. No injection or drainage. ENT: Nose without bleeding, purulent drainage or septal hematoma. Throat without erythema, tonsillar hypertrophy or exudate. Uvula midline. Airway patent. NECK: Trachea midline. No JVD or lymphadenopathy. Supple, nontender, no meningeal signs. CARDIOVASCULAR: Regular rate and rhythm without murmurs, gallops, or rubs. RESPIRATORY: Clear to auscultation. Breath sounds equal bilaterally. No wheezes , rales, or rhonchi. GASTROINTESTINAL: Abdomen soft, non-tender, nondistended. No hepato-splenomegaly , or palpable masses. No guarding. MUSCULOSKELETAL: Extremities without clubbing, cyanosis, or edema. No joint tenderness, effusion, or edema noted. No calf tenderness. Negative Homans sign bilaterally. NEUROLOGICAL: Awake and alert. Cranial nerves II through XII intact. Motor and sensory grossly within normal limits. Five out of 5 muscle strength in all muscle groups. Normal speech. Laboratory Laboratory Tests Test 04/08/18 14:32 White Blood Count 8.8 Red Blood Count 4.20 Hemoglobin 13.7 Hematocrit 39.7 Mean Corpuscular Volume 94.5 Mean Corpuscular Hemoglobin 32.7 Mean Corpuscular Hemoglobin Concent 34.6 Red Cell Distribution Width 12.9 Platelet Count 127 Mean Platelet Volume 8.6 Neutrophils (%) (Auto) 70.7 Lymphocytes (%) (Auto) 23.3 Monocytes (%) (Auto) 5.0 Eosinophils (%) (Auto) 0.5 Basophils (%) (Auto) 0.5 Neutrophils # (Auto) 6.2 Lymphocytes # (Auto) 2.1 Monocytes # (Auto) 0.4 Eosinophils # (Auto) 0.0 Basophils # (Auto) 0.0 CBC Comment DIFF FINAL Differential Comment Prothrombin Time 11.0 Prothromb Time International Ratio 1.1 Activated Partial Thromboplast Time 25.5 Blood Urea Nitrogen 20 Creatinine 1.55 Random Glucose 120 Total Protein 7.0 Albumin 3.5 Calcium Level 8.1 Magnesium Level 1.6 Alkaline Phosphatase 133 Aspartate Amino Transf (AST/SGOT) 254 Alanine Aminotransferase (ALT/SGPT) 116 Total Bilirubin 1.5 Sodium Level 143 Potassium Level 3.1 Chloride Level 108 Carbon Dioxide Level 23.2 Anion Gap 12 Estimat Glomerular Filtration Rate 44 Total Creatine Kinase 215 Creatine Kinase MB 4.9 Troponin I LESS THAN 0.02 B-Type Natriuretic Peptide 75 Lipase 270 Thyroid Stimulating Hormone 3rd Gen 2.690 Result Diagram: 04/08/18 1432 04/08/18 1432 Imaging Last Impressions Chest X-Ray 04/08/18 1403 Signed Impressions: Service Date/Time: Sunday, April 08, 2018 14:04 - CONCLUSION: No acute disease. Juan C Smiley MD FACR Barium Swallow X-Ray 04/08/18 0000 Signed Impressions: Service Date/Time: Sunday, April 08, 2018 15:20 - CONCLUSION: Recurrent distal esophageal stricture. Juan C Smiley MD FACR Caprini VTE Risk Assessment Caprini VTE Risk Assessment: Mod/High Risk (score >= 2) Caprini Risk Assessment Model Point Value = 1 Point Value = 2 Point Value = 3 Point Value = 5 Age 41-60 Minor surgery BMI > 25 kg/m2 Swollen legs Varicose veins or History of unexplained or recurrent spontaneous Oral contraceptives or hormone replacement Sepsis (< 1 month) Serious lung disease, including pneumonia (< 1 month) Abnormal pulmonary function Acute myocardial infarction Congestive heart failure (< 1 month) History of inflammatory bowel disease Medical patient at bed rest Age 61-74 Arthroscopic surgery Major open surgery (> 45 min) Laparoscopic surgery (> 45 min) Malignancy Confined to bed (> 72 hours) Immobilizing plaster cast Central venous access Age >= 75 History of VTE Family history of VTE Factor V Leiden Prothrombin [id number] Lupus anticoagulant Anticardiolipin antibodies Elevated serum homocysteine Heparin-induced thrombocytopenia Other congenital or acquired thrombophilia Stroke (< 1 month) Elective arthroplasty Hip, pelvis, or leg fracture Acute spinal cord injury (< 1 month) Prophylaxis Regimen Total Risk Factor Score Risk Level Prophylaxis Regimen 0-1 Low Early ambulation 2 Moderate Order ONE of the following: *Sequential Compression Device (SCD) *Heparin 5000 units SQ BID 3-4 Higher Order ONE of the following medications: *Heparin 5000 units SQ TID *Enoxaparin/Lovenox 40 mg SQ daily (WT < 150 kg, CrCl > 30 mL/min) *Enoxaparin/Lovenox 30 mg SQ daily (WT < 150 kg, CrCl > 10-29 mL/min) *Enoxaparin/Lovenox 30 mg SQ BID (WT < 150 kg, CrCl > 30 mL/min) AND/OR *Sequential Compression Device (SCD) 5 or more Highest Order ONE of the following medications: *Heparin 5000 units SQ TID (Preferred with Epidurals) *Enoxaparin/Lovenox 40 mg SQ daily (WT < 150 kg, CrCl > 30 mL/min) *Enoxaparin/Lovenox 30 mg SQ daily (WT < 150 kg, CrCl > 10-29 mL/min) *Enoxaparin/Lovenox 30 mg SQ BID (WT < 150 kg, CrCl > 30 mL/min) AND *Sequential Compression Device (SCD) Assessment and Plan Problem List: (1) Esophageal stricture ICD Code: K22.2 - Esophageal obstruction Status: Acute (2) GERD (gastroesophageal reflux disease) ICD Code: K21.9 - GERD (gastroesophageal reflux disease) Status: Acute (3) Anxiety ICD Code: F41.9 - Anxiety disorder, unspecified (4) Hypertension ICD Code: I10 - Essential (primary) hypertension (5) H/O heart artery stent ICD Code: Z95.5 - Presence of coronary angioplasty implant and graft (6) Barretts esophagus ICD Code: K22.70 - Douglas's esophagus without dysplasia (7) MURTAZA (acute kidney injury) ICD Code: N17.9 - Acute kidney failure, unspecified Assessment and Plan 73 Y/O male presented again with symptomatic esophageal stricture. Esophageal stricture/Barretts: Confirmed by imaging. GI consulted. Plan for repeat endoscopy tomorrow. H/O Dilation X7 Continue PPI HTN: Continue home medications. Monitor BP Hypokalemia: Replace and monitor Anxiety: Continue Remeron and Xanax. MURTAZA: Probably secondary to mild dehydration. Hydrate. Follow levels in AM Elevated LFT's: - Seems to be chronically elevated. Slightly more elevated today. T. Bili elevated. He follows with GI regularly outpatient. Hepatitis profile pending. Further plans per GI. F/U levels in AM. Continue to rest of the patient's home medication for his chronic conditions Discussed Condition With ED staff. Marsha Mathews MD April 08, 2018 17:39
[2018-04-08] MEDS ORDERED: ONDANSETRON HCL 4 MG/2 ML VIAL IVP PRN (17:45)
[2018-04-08] MEDS ORDERED: BISACODYL 10 MG SUPP RECTAL PRN (17:45)
[2018-04-08] MEDS ORDERED: MAGNESIUM HYDROXIDE SUSP 30 ML CUP PO PRN (17:45)
[2018-04-08] MEDS ORDERED: SENNOSIDES 8.6 MG TAB PO PRN (17:45)
[2018-04-08] MEDS ORDERED: POTASSIUM CHLORIDE 10 MEQ CONTROLLED RELEASE TAB PO ONE (17:45)
[2018-04-08] MEDS ORDERED: LACTULOSE SYRUP 20 GM/30 ML CUP PO PRN (17:45)
[2018-04-08] MEDS ORDERED: SODIUM CHLORIDE 0.9% FLUSH 10 ML FLUSH IV FLUSH PRN (17:45)
[2018-04-08] MEDS ORDERED: NALOXONE HCL 0.4 MG/ML AMP IV PUSH PRN (17:45)
[2018-04-08 17:52] VITALS: BP 138/72; PULSE 66; RESP 19; TEMP 98; O2SAT 98
[2018-04-08] MEDS ORDERED: POVIDONE IODINE 5% (ANTISEPSIS KIT) 4 APPLICATIONS EACH NARE PRN (19:30)
[2018-04-08] MEDS ORDERED: METOPROLOL TARTRATE 25 MG TAB PO PRN (19:30)
[2018-04-08] MEDS ORDERED: CHLORHEXIDINE GLUCONATE 2 % 1 PACK (2 CLOTHS) TOPICAL PRN (19:30)
[2018-04-08] MEDS ORDERED: LACTATED RINGER'S 1000 ML IV PRN (19:30)
[2018-04-08] MEDS ORDERED: SODIUM CHLORID 0.9% 500 ML IV PRN (19:30)
[2018-04-08] MEDS ORDERED: PILL SPLITTER OTHER PRN (19:30)
[2018-04-08] MEDS ORDERED: FATTY ACIDS PO SCH (21:00)
[2018-04-08] MEDS ORDERED: hydrALAZINE HCL 10 MG TAB PO SCH (21:00)
[2018-04-08] MEDS ORDERED: OMEGA PO SCH (21:00)
[2018-04-08 21:05] VITALS: BP 87/53; PULSE 66; RESP 16; TEMP 98; O2SAT 97
[2018-04-08 21:07] VITALS: BP 95/51
[2018-04-08] MEDS ORDERED: NS + KCL 20 MEQ INJ 1,000 ML IV SCH (22:00)
[2018-04-08] MEDS ORDERED: SODIUM CHLOR 0.9% 1000 ML INJ 1,000 ML IV ONE (22:00)
[2018-04-08] MEDS: NS + KCL 20 MEQ INJ 1,000 ML IV SCH (22:00)
[2018-04-08] MEDS: MIRTAZAPINE 15 MG TAB PO SCH (22:14)
[2018-04-08] MEDS: SODIUM CHLORIDE 0.9% FLUSH 10 ML FLUSH IV FLUSH SCH (22:16)
[2018-04-08 23:17] VITALS: BP 130/64; PULSE 66; RESP 18; TEMP 98.2; O2SAT 97
[2018-04-08] MEDS: METOPROLOL TARTRATE 25 MG TAB PO SCH (23:20)
[2018-04-09 04:42] VITALS: BP 127/69; PULSE 68; RESP 16; TEMP 97.6; O2SAT 95
[2018-04-09 07:20] LABS: AUTOMATED NEUTROPHIL # 2.7 TH/MM3 (1.8-7.7); BASOPHIL % 0.6 % (0.0-2.0); EOSINOPHIL # 0.1 TH/MM3 (0-0.4); EOSINOPHIL % 1.4 % (0.0-4.0); HEMATOCRIT 36.5 % (39.0-51.0); HEMOGLOBIN 12.3 GM/DL (13.0-17.0); LYMPH % 39.8 % (9.0-44.0); LYMPHOCYTE # 2.1 TH/MM3 (1.0-4.8); MEAN CELL VOLUME 95.7 FL (80.0-100.0); MEAN CORPUSCULAR HEMOGLOBIN 32.2 PG (27.0-34.0); MEAN CORPUSCULAR HGB CONC 33.7 % (32.0-36.0); MEAN PLATELET VOLUME 8.4 FL (7.0-11.0); MONO % 7.4 % (0.0-8.0); MONOCYTE # 0.4 TH/MM3 (0-0.9); NEUT % 50.8 % (16.0-70.0); PLATELET COUNT 101 TH/MM3 (150-450); RED BLOOD COUNT 3.81 MIL/MM3 (4.50-5.90); RED CELL DISTRIBUTION WIDTH 13.2 % (11.6-17.2); WHITE BLOOD COUNT 5.3 TH/MM3 (4.0-11.0)
[2018-04-09 07:42] LABS: BICARBONATE 22.6 MEQ/L (21.0-32.0); CALCIUM 7.9 MG/DL (8.5-10.1); CREATININE 0.89 MG/DL (0.60-1.30)
[2018-04-09 07:44] LABS: DIRECT BILIRUBIN ADULT 0.3 MG/DL (0.0-0.2)
[2018-04-09 07:46] LABS: INDIRECT BILIRUBIN 0.6 MG/DL (0.0-0.8); TOTAL BILIRUBIN ADULT 0.9 MG/DL (0.2-1.0)
[2018-04-09] MEDS: NS + KCL 20 MEQ INJ 1,000 ML IV SCH ×2 (08:00→18:00)
[2018-04-09 08:14] VITALS: BP 177/86; PULSE 72; RESP 18; TEMP 97.8; O2SAT 96
[2018-04-09] MEDS ORDERED: ASPIRIN EC 325 MG TABEC PO SCH (09:00)
[2018-04-09] MEDS ORDERED: PANTOPRAZOLE SOD 40 MG DELAYED RELEASE TAB PO SCH (09:00)
[2018-04-09] MEDS: ALLOPURINOL 300 MG TAB PO SCH (09:23)
[2018-04-09] MEDS: LISINOPRIL 20 MG TAB PO SCH (09:23)
[2018-04-09] MEDS: GABAPENTIN 100 MG CAP PO SCH (09:24)
[2018-04-09] MEDS: ISOSORBIDE MONONITRATE 60 MG CR TAB (IMDUR) PO SCH (09:24)
[2018-04-09] MEDS: POTASSIUM CHLORIDE 10 MEQ CAP PO SCH (09:24)
[2018-04-09] MEDS: TAMSULOSIN HCL 0.4 MG CAP PO SCH (09:24)
[2018-04-09] MEDS: LORATADINE 10 MG TAB PO SCH (09:24)
[2018-04-09] MEDS: METOPROLOL TARTRATE 25 MG TAB PO SCH ×2 (09:25→20:39)
[2018-04-09] MEDS: SODIUM CHLORIDE 0.9% FLUSH 10 ML FLUSH IV FLUSH SCH ×2 (09:28→20:39)
[2018-04-09] MEDS ORDERED: ePHEDrine/NS 25 MG/5 ML SYRINGE IV ONE (09:54)
[2018-04-09] MEDS ORDERED: PROPOFOL 200 MG/20 ML AMP IV ONE (09:54)
[2018-04-09] MEDS ORDERED: LIDOCAINE HCL 1% PF 5 ML SYRINGE OTHER ONE (09:54)
--- NOTE | 2018-04-09 11:57 | HHI.PR ---
Subjective Remarks Follow-up esophageal stricture/elevated LFTs April 09, 2018-patient seen and examined, patient reports odynophagia as well as dysphasia above liquid and solid food. Currently n.p.o. complains this morning of bilateral knee pain Objective Vitals Vital Signs Date Time Temp Pulse Resp B/P (MAP) Pulse Ox O2 Delivery O2 Flow Rate FiO2 04/09/18 08:14 97.8 72 18 177/86 (116) 96 04/09/18 04:42 97.6 68 16 127/69 (88) 95 04/08/18 23:17 98.2 66 18 130/64 (86) 97 04/08/18 21:07 95/51 (66) 04/08/18 21:05 98.0 66 16 87/53 (64) 97 04/08/18 17:52 98.0 66 19 138/72 (94) 98 04/08/18 14:07 97 Nasal Cannula 2.00 04/08/18 13:43 98.1 72 20 163/90 (114) 98 I/O 04/08/18 04/08/18 04/08/18 04/09/18 04/09/18 04/09/18 07:00 15:00 23:00 07:00 15:00 23:00 # Voids 1 3 # Bowel Movements 3 Result Diagram: 04/09/18 0650 04/09/18 0650 Imaging Last Impressions Chest X-Ray 04/08/18 1403 Signed Impressions: Service Date/Time: Sunday, April 08, 2018 14:04 - CONCLUSION: No acute disease. Juan C Smiley MD FACR Barium Swallow X-Ray 04/08/18 0000 Signed Impressions: Service Date/Time: Sunday, April 08, 2018 15:20 - CONCLUSION: Recurrent distal esophageal stricture. Juan C Smiley MD FACR Objective Remarks GENERAL: NAD SKIN: Warm and dry. HEAD: Normocephalic. EYES: No scleral icterus. No injection or drainage. NECK: Supple, trachea midline. No JVD or lymphadenopathy. CARDIOVASCULAR: Regular rate and rhythm without murmurs, gallops, or rubs. RESPIRATORY: Breath sounds equal bilaterally. No accessory muscle use. GASTROINTESTINAL: Abdomen soft, non-tender, nondistended. MUSCULOSKELETAL: No cyanosis, or edema. BACK: Nontender without obvious deformity. No CVA tenderness. A/P Problem List: (1) Esophageal stricture ICD Code: K22.2 - Esophageal obstruction Status: Acute (2) GERD (gastroesophageal reflux disease) ICD Code: K21.9 - GERD (gastroesophageal reflux disease) Status: Acute (3) Anxiety ICD Code: F41.9 - Anxiety disorder, unspecified (4) Hypertension ICD Code: I10 - Essential (primary) hypertension (5) H/O heart artery stent ICD Code: Z95.5 - Presence of coronary angioplasty implant and graft (6) Barretts esophagus ICD Code: K22.70 - Douglas's esophagus without dysplasia (7) MURTAZA (acute kidney injury) ICD Code: N17.9 - Acute kidney failure, unspecified Assessment and Plan 73-year-old man with Esophageal stricture/Barretts: H/O Dilation X7 GI consulted, and plan for EGD with possible dilatation today April 09, 2018 Continue PPI HTN: Continue home medications. Monitor BP Hypokalemia: Replace and monitor Anxiety: Continue Remeron and Xanax. MURTAZA: Probably secondary to mild dehydration. Resolved with IV fluid hydration Elevated LFT's: Hyperammonemia Management per Tesfaye Nur MD April 09, 2018 11:57
--- NOTE | 2018-04-09 12:13 | GIPROC ---
[facility] [address] [facility]. [facility], [address] EGD PROCEDURE REPORT EXAM DATE: 04/09/2018 PATIENT NAME: Marcos Isaac MR #: [id number] BIRTHDATE: 1945 ATTENDING: Chema Yu MD ORDER #: [id number] UTILIZATION MANAGEMENT RN: Nemo Perdomo and Sarah Wan STATUS: inpatient INDICATIONS: The patient is a 73 yr old male here for an EGD due to dysphagia PROCEDURE PERFORMED: EGD w/ dilation of esophagus via guidewire MEDICATIONS: None and Per Anesthesia. TOPICAL ANESTHETIC: CONSENT: The patient understands the risks and benefits of the procedure and understands that these risks include, but are not limited to: sedation, allergic reaction, infection, perforation and/or bleeding. Alternative means of evaluation and treatment include, among others: physical exam, x-rays, and/or surgical intervention. The patient elects to proceed with this endoscopic procedure. medical equipment was checked for proper function. Hand hygiene and appropriate measures for infection prevention was taken. After the risks, benefits and alternatives of the procedure were thoroughly explained, Informed consent was verified, confirmed and timeout was successfully executed by the treatment team. The patient was anesthetized with topical anesthesia and the Pentax [id number] endoscope was introduced through the mouth and advanced to the second portion of the duodenum. Retroflexed views revealed no abnormalities The gastroscope was then slowly withdrawn and removed. ESOPHAGUS: There was LA Class C esophagitis noted. There was a short peptic and fibrotic stricture in the mid esophagus. The stricture was traversable with resistance. The stricture was dilated using a 15mm (45Fr) savary dilator over guidewire. STOMACH: There was erythematous moderate gastritis in the gastric antrum. DUODENUM: The duodenal mucosa appeared normal in the bulb and second portion of the duodenum. ADVERSE EVENTS: There were no complications. IMPRESSIONS: 1. There was LA Class C esophagitis noted 2. There was a short stricture in the mid esophagus; The stricture was dilated using a 15mm (45Fr) savary dilator over guidewire 3. There was erythematous gastritis in the gastric antrum 4. Normal duodenal mucosa in the bulb and second portion of the duodenum 5. Retroflexed views revealed no abnormalities RECOMMENDATIONS: 1. Anti-reflux regimen 2. Continue PPI 3. Flovent inhl 2 puffs swallowed bid x 12 weeks PATIENT CONDITION: stable DISPOSITION: Inpatient REPEAT EXAM: Return 3 months EGD with dilatation Chema Yu MD eSigned: Chema Yu MD 04/09/2018 12:13 PM cc: PATIENT NAME: Marcos Isaac A MR#: [id number]
[2018-04-09 13:00] VITALS: BP 104/63; PULSE 76; RESP 18; TEMP 97.8; O2SAT 97
[2018-04-09] MEDS: FLUTICASONE PROPIONATE 220 MCG/ACT 12 GM INHALER INH SCH ×2 (13:00→20:39)
--- NOTE | 2018-04-09 13:26 | HHI.DCPOC ---
Discharge Care Plan Diagnosis: (1) GERD (gastroesophageal reflux disease) (2) Hypertension (3) Hyperlipidemia (4) Esophageal stricture Your Health Problems Are: Difficulty to Swallow Goals to Promote Your Health * To prevent worsening of your condition and complications * To maintain your health at the optimal level Directions to Meet Your Goals Take your medications as prescribed Follow your dietary instruction Follow activity as directed Keep your appointments as scheduled Take your immunizations and boosters as scheduled If your symptoms worsen call your PCP, if no PCP go to Urgent Care Center or Emergency Room Smoking is Dangerous to Your Health. Avoid second hand smoke Call the 24-hour hour crisis hotline for domestic abuse at [facility] April 09, 2018 13:26
[2018-04-09 16:50] VITALS: BP 147/80; PULSE 73; RESP 19; TEMP 98.1; O2SAT 97
[2018-04-09] MEDS ORDERED: ALLOPURINOL 300 MG TAB PO SCH (18:00)
--- NOTE | 2018-04-09 18:11 | HHI.PR ---
Addendum to Inpatient Note Addendum Reason: Additional Documentation Additional Information Discharge patient to home Condition on discharge: Improved Regular Diet as tolerated Ad Darline activity Rx written:see EMR Follow-up with primary care physician in 1 week GI 1-2 weeks Tesfaye Snyder MD April 09, 2018 18:11
--- NOTE | 2018-04-09 19:10 | EKG ---
Date Performed: 04/08/2018 Time Performed: 13:57:31 PTAGE: 73 years EKG: Normal Sinus rhythm with atrial premature complexes. Nonspecif ST abnormalites. Prolonged QT interval. When compared to previous tracing, premature atrial contractions Are new. ABNORMAL ECG PREVIOUS TRACING : 10/29/2017 21.03.39 DOCTOR: Ta Campbell Interpretating Date/Time 04/09/2018 19:09:56
[2018-04-09 20:28] VITALS: BP 188/89; PULSE 83; RESP 18; TEMP 98; O2SAT 96
[2018-04-09] MEDS: PANTOPRAZOLE SOD 40 MG DELAYED RELEASE TAB PO SCH (20:39)
[2018-04-09] MEDS: MIRTAZAPINE 15 MG TAB PO SCH (20:39)
[2018-04-09 23:48] VITALS: BP 159/77; PULSE 68; RESP 18; TEMP 98.1; O2SAT 95
[2018-04-10] MEDS: ACETAMINOPHEN 325 MG TAB PO PRN ×2 (00:14→01:17)
[2018-04-10] MEDS: NS + KCL 20 MEQ INJ 1,000 ML IV SCH (00:14)
[2018-04-10 03:32] VITALS: BP 163/83; PULSE 65; RESP 18; TEMP 98.1; O2SAT 96
[2018-04-10] MEDS ORDERED: FLUTI220I INH (08:57)
[2018-04-10] MEDS: GABAPENTIN 100 MG CAP PO SCH (09:27)
[2018-04-10] MEDS: LISINOPRIL 20 MG TAB PO SCH (09:27)
[2018-04-10] MEDS: ISOSORBIDE MONONITRATE 60 MG CR TAB (IMDUR) PO SCH (09:27)
[2018-04-10] MEDS: TAMSULOSIN HCL 0.4 MG CAP PO SCH (09:27)
[2018-04-10] MEDS: METOPROLOL TARTRATE 25 MG TAB PO SCH (09:27)
[2018-04-10] MEDS: LORATADINE 10 MG TAB PO SCH (09:27)
[2018-04-10] MEDS: POTASSIUM CHLORIDE 10 MEQ CAP PO SCH (09:27)
[2018-04-10] MEDS: PANTOPRAZOLE SOD 40 MG DELAYED RELEASE TAB PO SCH (09:28)
[2018-04-10] MEDS: ALLOPURINOL 300 MG TAB PO SCH (09:28)
[2018-04-10] MEDS: SODIUM CHLORIDE 0.9% FLUSH 10 ML FLUSH IV FLUSH SCH (09:28)
[2018-04-10] MEDS: FLUTICASONE PROPIONATE 220 MCG/ACT 12 GM INHALER INH SCH (09:28)
[2018-04-10 14:33] LABS: SMOOTH MUSCLE TOTAL AUTOABS Negative (Negative)
[2018-04-13 03:50] LABS: MITOCHONDRIAL ABS LESS THAN 20.0 U (<=20.0)
== END 2018-04-10 09:55 | disposition home or self-care (01) ==
LOC: NEPE 13:33 → NEDA 16:46 → NEPHCDU 17:33
PROVIDERS: ADMIT Hospitalist; ATTEND Hospitalist
DX: R13.10 Dysphagia, unspecified (principal); K22.2 Esophageal obstruction; Z85.46 Personal history of malignant neoplasm of prostate; I25.10 Atherosclerotic heart disease of native coronary artery without angina pectoris; E78.5 Hyperlipidemia, unspecified; Z86.73 Personal history of transient ischemic attack (TIA), and cerebral infarction without residual deficits; K44.9 Diaphragmatic hernia without obstruction or gangrene; K22.70 Barrett's esophagus without dysplasia; Z86.010 Personal history of colon polyps; F42.9 Obsessive-compulsive disorder, unspecified; F41.9 Anxiety disorder, unspecified; J44.9 Chronic obstructive pulmonary disease, unspecified; K85.90 Acute pancreatitis without necrosis or infection, unspecified; Z87.442 Personal history of urinary calculi; K57.92 Diverticulitis of intestine, part unspecified, without perforation or abscess without bleeding; Z87.891 Personal history of nicotine dependence; K21.9 Gastro-esophageal reflux disease without esophagitis; Z79.899 Other long term (current) drug therapy; I10 Essential (primary) hypertension; Z95.5 Presence of coronary angioplasty implant and graft; N17.9 Acute kidney failure, unspecified; E87.6 Hypokalemia; R79.89 Other specified abnormal findings of blood chemistry; K20.9 Esophagitis, unspecified; K29.70 Gastritis, unspecified, without bleeding; R94.31 Abnormal electrocardiogram [ECG] [EKG]; R47.02 Dysphasia; F32.9 Major depressive disorder, single episode, unspecified; M10.9 Gout, unspecified; E78.00 Pure hypercholesterolemia, unspecified; K52.9 Noninfective gastroenteritis and colitis, unspecified; R11.10 Vomiting, unspecified
CPT/HCPCS: 00731; 43248; 71045; 74230; 80048; 80053; 80074; 80076; 82105; 82140; 82550; 82552; 83520; 83690; 83735; 83880; 84443; 84484; 85025; 85610; 85730; 86038; 86255; 93005; 96360; 96361; 99285; C1769; G0378; J3480; J7030; J7120

== ENCOUNTER 2018-04-10 16:51 | Emergency (ER) | payer MEDICARE ==
[~2018-04-10] VITALS: Ht 172.7 cm; Wt 82.0 kg
[~2018-04-10 16:51] MED LIST changes: -ASCO500T PO; +ATOR40TA16 PO; -COEN1CAP PO; -CYAN1000P IM; -FLUT1SPR5 EACH NARE; +FLUTI220I INH; -FOSA70TA PO; -GEMF600 PO; +REGL10TA5 PO; -SYMB160A INH
[2018-04-10 17:09] VITALS: BP 115/55; PULSE 102; RESP 18; TEMP 97.9; O2SAT 99
[2018-04-10 17:47] VITALS: BP 122/66
== END 2018-04-10 17:47 | disposition left against medical advice (07) ==
LOC: NED 16:51
DX: R09.89 Other specified symptoms and signs involving the circulatory and respiratory systems (principal)
CPT/HCPCS: 99281